=== PATIENT | female | born 1980 | race American Indian/Alaskan Native ===

== ENCOUNTER 2017-09-05 13:30 | Emergency (ER) | payer MEDICAID ==
[2017-09-05 14:27] LABS: Basophils % (Auto) 0.5 % (0.0-1.8); Eosinophils % (Auto) 3.2 % (0.0-4.3); Hematocrit 42.1 % (30.3-42.9); Mean Corpuscular HGB Conc 33 % (30-34); Mean Corpuscular Hemoglobin 30 pg (28-32); Mean Corpuscular Volume 90 fl (79-97); Platelet Count 265 K/mm3 (140-440); Red Blood Count 4.67 M/mm3 (3.65-5.03); White Blood Count 5.7 K/mm3 (4.5-11.0)
[2017-09-05 15:01] LABS: Anion Gap 16 mmol/L; BUN/Creatinine Ratio 17; Blood Urea Nitrogen 12 mg/dL (7-17); Calcium 8.6 mg/dL (8.4-10.2); Carbon Dioxide 26 mmol/L (22-30); Chloride 100.5 mmol/L (98-107); Glucose 118 mg/dL (65-100); Potassium 3.7 mmol/L (3.6-5.0); Sodium 139 mmol/L (137-145)
[2017-09-05 15:25] LABS: Bacteria,Urine 1+ /HPF (Negative); Bilirubin,Urine NEG (Negative); Blood,Urine LG (Negative); Ketones,Urine NEG (Negative); Leukocyte Esterase,Urine NEG (Negative); Mucus,Urine FEW /HPF; Nitrite,Urine NEG (Negative)
[2017-09-05 15:29] LABS: RBC,Urine > 182.0 /HPF (0.0-6.0)
[2017-09-05] MEDS ORDERED: CATAPRES ONE (19:17)
[2017-09-05] MEDS ORDERED: CATAPRES PO ONE (19:23)
[2017-09-05 21:43] VITALS: BP 165/102
--- NOTE | 2017-09-06 00:15 | Emergency Department Report ---
HPI - General Chief Complaint: Nausea/Vomiting/Diarrhea Time Seen by Provider: 09/05/17 23:11 - HPI HPI: This is a 37-year-old -[place] female presents to the emergency department with a complaint of uncontrolled and elevated blood pressure as well as some nonspecific dizziness. She denies any headache, vision change, slurred speech, chest pain, shortness of breath. The patient admits to history of hypertension but says that she has not been on any blood pressure medication for a while now. She was having some insurance issues and therefore has been unable to see a primary care physician. However recently she was able to get insurance and says that she follows up with Dr. Hayley Olivares. She denies any tobacco or illicit drug use or abuse. She did not take anything for her symptoms prior to presentation. No recent travel or sick contacts at home. ED Past Medical Hx - Past Medical History Previous Medical History?: Yes Hx Hypertension: Yes - Surgical History Past Surgical History?: Yes Additional Surgical History: breast reduction. gallstone removal. foot surgery - Social History Smoking Status: Never Smoker Substance Use Type: None - Medications Home Medications: Home Medications Medication Instructions Recorded Confirmed Last Taken Type Amlodipine Besylate [Norvasc] 5 mg PO QDAY #30 tablet 09/06/17 Unknown Rx ED Review of Systems ROS: Stated complaint: DIZZY Other details as noted in HPI Comment: All other systems reviewed and negative Constitutional: denies: chills, fever Eyes: denies: eye pain, eye discharge, vision change ENT: denies: ear pain, throat pain Respiratory: denies: cough, shortness of breath, wheezing Cardiovascular: denies: chest pain, palpitations Gastrointestinal: denies: abdominal pain, nausea, diarrhea Genitourinary: denies: urgency, dysuria, discharge Musculoskeletal: denies: back pain, joint swelling, arthralgia Skin: denies: rash, lesions Neurological: other (dizzy). denies: headache, weakness, paresthesias Physical Exam - Physical Exam Vital Signs: Vital Signs 09/05/17 09/05/17 09/05/17 13:57 19:12 19:24 Temperature 98.3 F Pulse Rate 79 82 82 Respiratory 18 16 Rate Blood Pressure 189/113 188/110 Blood Pressure 188/110 [Right] O2 Sat by Pulse 98 99 Oximetry 09/05/17 21:41 Temperature Pulse Rate 80 Respiratory Rate Blood Pressure Blood Pressure 165/102 [Right] O2 Sat by Pulse Oximetry Physical Exam: GENERAL: The patient is well-developed well-nourished. HENT: Normocephalic. Atraumatic. Patient has moist mucous membranes. EYES: Extraocular motions are intact. Pupils equal reactive to light bilaterally. No nystagmus. NECK: Supple. Trachea is midline. CHEST/LUNGS: Clear to auscultation. There is no respiratory distress noted. HEART/CARDIOVASCULAR: Regular. There is no tachycardia. There is no gallop rub or murmur. ABDOMEN: Abdomen is soft, nontender. Patient has normal bowel sounds. There is no abdominal distention. Obese habitus. SKIN: Skin is warm and dry. NEURO: The patient is awake, alert, and oriented. The patient is cooperative. The patient has no focal neurologic deficits. The patient has normal speech. MUSCULOSKELETAL: There is no tenderness or deformity. There is no limitation range of motion. There is no evidence of acute injury. ED Course Vital Signs 09/05/17 09/05/17 09/05/17 13:57 19:12 19:24 Temperature 98.3 F Pulse Rate 79 82 82 Respiratory 18 16 Rate Blood Pressure 189/113 188/110 Blood Pressure 188/110 [Right] O2 Sat by Pulse 98 99 Oximetry 09/05/17 21:41 Temperature Pulse Rate 80 Respiratory Rate Blood Pressure Blood Pressure 165/102 [Right] O2 Sat by Pulse Oximetry ED Medical Decision Making - Lab Data Result diagrams: 09/05/17 14:12 09/05/17 14:12 - EKG Data -: EKG Interpreted by Ak EKG shows normal: sinus rhythm, axis (LAD), intervals, QRS complexes, ST-T waves (Flat t waves) Rate: normal - EKG Data When compared to previous EKG there are: previous EKG unavailable Interpretation: other (left axis deviation, flat t waves) - Medical Decision Making 37-year-old female presents to the emergency department with complaint of some nonspecific dizziness or lightheadedness as well as some uncontrolled blood pressure. She did have quite elevated blood pressure when she came to triage and was given a dose of 0.2 mg Catapres. By the time she got back to the main emergency department, the blood pressure was at a much more reasonable level. She does not have any focal, motor or sensory deficits in her cranial nerves are intact. She says that the dizziness and/or lightheadedness has already improved. Labs are mostly unremarkable including no signs of infection, electrolyte abnormalities, renal insufficiency. EKG does not show any signs of ST elevation LA or dysrhythmia. The blood pressure has improved and the patient 's symptoms have also improved if not resolved, the patient appears safe for discharge home at this time. Since there are no focal, motor or sensory deficits in her cranial nerves are intact, did not feel that CT imaging of the head was necessary at this time. She will follow-up with Dr. Olivares and will return to the ER with any worsening of her symptoms or any acute distress. The patient's blood pressure prior to discharge was 118/78. - Differential Diagnosis dysrhythmia, hypothyroidism, hypertensive urgency Critical Care Time: No Critical care attestation.: If time is entered above; I have spent that time in minutes in the direct care of this critically ill patient, excluding procedure time. ED Disposition Clinical Impression: Dizziness Hypertension Qualifiers: Hypertension type: essential hypertension Qualified Code(s): I10 - Essential ( primary) hypertension Disposition: DC-01 TO HOME OR SELFCARE Is pt being admited?: No Condition: Stable Instructions: Hypertension (ED), Lightheadedness (ED), Dizziness (ED) Additional Instructions: His follow-up with your primary care doctor in the next few days. Try and stay with foods are high in salt and caffeinated products to help with your blood pressure. Keep a blood pressure log. Return to the emergency Department with any worsening of her symptoms or any acute distress. Prescriptions: Amlodipine Besylate [Norvasc] 5 mg PO QDAY #30 tablet Referrals: HAYLEY OLIVARES MD [Primary Care Provider] - 3-5 Days Forms: Work/School Release Form(ED) Time of Disposition: 00:38
== END 2017-09-06 00:45 | disposition home or self-care (01) ==
LOC: ED 13:30
DX: I10 Essential (primary) hypertension (principal); R42 Dizziness and giddiness
CPT/HCPCS: 36415; 80048; 81001; 81025; 84443; 85025; 93005; 93010

== ENCOUNTER 2017-12-05 12:12 | Emergency (ER) | payer MEDICAID ==
[2017-12-05 13:29] LABS: Basophils # (Auto) 0.1 K/mm3 (0.0-0.1); Eosinophils # (Auto) 0.3 K/mm3 (0.0-0.4); Eosinophils % (Auto) 4.4 % (0.0-4.3); Hematocrit 39.3 % (30.3-42.9); Hemoglobin 13.5 gm/dl (10.1-14.3); Lymphocytes # (Auto) 3.1 K/mm3 (1.2-5.4); Lymphocytes % (Auto) 42.8 % (13.4-35.0); Mean Corpuscular HGB Conc 34 % (30-34); Mean Corpuscular Hemoglobin 31 pg (28-32); Mean Corpuscular Volume 91 fl (79-97); Monocytes # (Auto) 0.4 K/mm3 (0.0-0.8); Monocytes % (Auto) 5.8 % (0.0-7.3); Platelet Count 251 K/mm3 (140-440); Red Cell Distribution Width 12.6 % (13.2-15.2)
[2017-12-05 13:31] LABS: Bacteria,Urine 1+ /HPF (Negative); Bilirubin,Urine NEG (Negative); Blood,Urine NEG (Negative); Color,Urine Yellow (Yellow); Mucus,Urine FEW /HPF; Nitrite,Urine NEG (Negative); Protein,Urine <15 mg/dL mg/dL (Negative); Urobilinogen,Urine < 2.0 mg/dL (<2.0)
[2017-12-05 13:37] LABS: BUN/Creatinine Ratio 16; Blood Urea Nitrogen 11 mg/dL (7-17); Calcium 9.1 mg/dL (8.4-10.2); Hemolysis Index 6
[2017-12-05 17:41] VITALS: BP 173/108
[2017-12-05] MEDS ORDERED: NORCO 5/325 PO ONE (18:50)
[2017-12-05] MEDS ORDERED: ZOFRAN ODT PO ONE (18:50)
[2017-12-05] MEDS ORDERED: CATAPRES PO ONE (18:50)
[2017-12-05] MEDS ORDERED: MACROBID PO ONE (18:50)
[2017-12-05] MEDS ORDERED: DUONEB *Not for PRN Use IH ONE (18:50)
--- NOTE | 2017-12-05 18:56 | Emergency Department Report ---
ED General Adult HPI - General Chief complaint: Dizziness Stated complaint: DIZZY/ HIGH BP Time Seen by Provider: 12/05/17 18:47 Source: patient, EMS Mode of arrival: Ambulatory Limitations: No Limitations - History of Present Illness Initial comments: Patient is a 56-vsag-ygm-[place] female with a past medical history of asthma who is presenting with cough cold congestion for 3 weeks. Patient states that she is had a productive cough clear sputum as well as wheezing for the past 3 weeks. Patient denies any fever vomiting at this time. Patient states that she also has a mild headache is generalized and is a 6 out of 10 in severity. Patient states that she's ran out of her nebulizer medications several days ago. Patient also complaining of mild dizziness and shaking this morning. Patient states she woke up in a cold sweat and was shaking uncontrollably. Patient's also noted that her blood pressure is elevated as well. Patient also states that she has some mild suprapubic pain with radiation to the back. Patient denies dysuria but does have urinary frequency Severity scale (0 -10): 0 Associated Symptoms: cough, diaphoresis, fever/chills, headaches. denies: confusion, chest pain, loss of appetite, malaise, nausea/vomiting, rash, seizure , shortness of breath, syncope - Related Data Home Medications Medication Instructions Recorded Confirmed Last Taken ALBUTEROL Inhaler [Proair] 2 puff IH QID PRN 01/03/17 01/03/17 Unknown Previous Rx's Medication Instructions Recorded Last Taken Type Hydrochlorothiazide [HCTZ] 25 mg PO ONCE #30 tablet 10/22/16 Unknown Rx ALBUTEROL Inhaler [ProAir HFA 2 puff IH QID PRN #1 inhalation 01/03/17 Unknown Rx Inhaler] Azithromycin [Zithromax Z-NALDO] 250 mg PO QDAY #6 tablet 01/03/17 Unknown Rx Benzonatate [Tessalon Perles] 100 mg PO Q8HR #14 capsule 01/03/17 Unknown Rx Phenylephrine/Dm/Acetaminop/GG 20 ml PO Q4HR PRN #180 liquid 01/03/17 Unknown Rx [Mucinex Byds-Kdp-Bgxieivvmd Lq] HYDROcodone/APAP 5-325 [[place] 1 each PO Q6HR PRN #15 tablet 04/21/17 Unknown Rx 5/325] Amlodipine Besylate [Norvasc] 5 mg PO QDAY #30 tablet 09/06/17 Unknown Rx Albuterol Sulfate [Albuterol 0.63% 0.63 mg IH TID PRN 7 Days ml 12/05/17 Unknown Rx NEBS] Benzonatate [Tessalon Perles] 100 mg PO Q8HR #12 capsule 12/05/17 Unknown Rx HYDROcodone/APAP 5-325 [[place] 1 each PO Q6HR PRN #12 tablet 12/05/17 Unknown Rx 5/325] Nitrofurantoin Monohyd/M-Cryst 100 mg PO BID #12 capsule 12/05/17 Unknown Rx [Macrobid 100 mg Capsule] Allergies Allergy/AdvReac Type Severity Reaction Status Date / Time No Known Allergies Allergy Verified 09/05/17 13:57 ED Review of Systems ROS: Stated complaint: DIZZY/ HIGH BP Other details as noted in HPI Comment: All other systems reviewed and negative ED Past Medical Hx - Past Medical History Previous Medical History?: Yes Hx Hypertension: Yes Hx Asthma: Yes Additional medical history: Morbid obesity - Surgical History Past Surgical History?: Yes Hx Cholecystectomy: Yes Additional Surgical History: breast reduction. gallstone removal. foot surgery - Social History Smoking Status: Never Smoker Substance Use Type: Prescribed - Medications Home Medications: Home Medications Medication Instructions Recorded Confirmed Last Taken Type Hydrochlorothiazide [HCTZ] 25 mg PO ONCE #30 tablet 10/22/16 01/03/17 Unknown Rx ALBUTEROL Inhaler [ProAir HFA 2 puff IH QID PRN #1 inhalation 01/03/17 Unknown Rx Inhaler] ALBUTEROL Inhaler [Proair] 2 puff IH QID PRN 01/03/17 01/03/17 Unknown History Azithromycin [Zithromax Z-NALDO] 250 mg PO QDAY #6 tablet 01/03/17 Unknown Rx Benzonatate [Tessalon Perles] 100 mg PO Q8HR #14 capsule 01/03/17 Unknown Rx Phenylephrine/Dm/Acetaminop/GG 20 ml PO Q4HR PRN #180 liquid 01/03/17 Unknown Rx [Mucinex Pxpy-Cxd-Rgborukuml Lq] HYDROcodone/APAP 5-325 [[place] 1 each PO Q6HR PRN #15 tablet 04/21/17 Unknown Rx 5/325] Amlodipine Besylate [Norvasc] 5 mg PO QDAY #30 tablet 09/06/17 Unknown Rx Albuterol Sulfate [Albuterol 0.63% 0.63 mg IH TID PRN 7 Days ml 12/05/17 Unknown Rx NEBS] Benzonatate [Tessalon Perles] 100 mg PO Q8HR #12 capsule 12/05/17 Unknown Rx HYDROcodone/APAP 5-325 [[place] 1 each PO Q6HR PRN #12 tablet 12/05/17 Unknown Rx 5/325] Nitrofurantoin Monohyd/M-Cryst 100 mg PO BID #12 capsule 12/05/17 Unknown Rx [Macrobid 100 mg Capsule] ED Physical Exam - General Limitations: No Limitations General appearance: alert, in no apparent distress - Head Head exam: Present: atraumatic, normocephalic - Eye Eye exam: Present: normal appearance - ENT ENT exam: Present: mucous membranes moist - Neck Neck exam: Present: normal inspection - Respiratory Respiratory exam: Present: normal lung sounds bilaterally, wheezes. Absent: respiratory distress, rales, rhonchi, stridor - Cardiovascular Cardiovascular Exam: Present: regular rate, normal rhythm. Absent: systolic murmur, diastolic murmur, rubs, gallop - GI/Abdominal GI/Abdominal exam: Present: soft, normal bowel sounds. Absent: distended, tenderness, guarding - Extremities Exam Extremities exam: Present: normal inspection - Back Exam Back exam: Present: normal inspection - Neurological Exam Neurological exam: Present: alert, oriented X3 - Psychiatric Psychiatric exam: Present: normal affect, normal mood - Skin Skin exam: Present: warm, dry, intact, normal color. Absent: rash ED Course Vital Signs 12/05/17 12/05/17 12/05/17 12:26 17:40 17:44 Temperature 98.2 F 98.2 F Pulse Rate 64 69 69 Pulse Rate [ Posterior Bilateral Throughout] Respiratory 18 16 16 Rate Respiratory Rate [Posterior Bilateral Throughout] Blood Pressure 169/117 Blood Pressure 173/108 173/108 [Left] O2 Sat by Pulse 98 100 100 Oximetry 12/05/17 19:24 Temperature Pulse Rate Pulse Rate [ 67 Posterior Bilateral Throughout] Respiratory Rate Respiratory 18 Rate [Posterior Bilateral Throughout] Blood Pressure Blood Pressure [Left] O2 Sat by Pulse Oximetry ED Medical Decision Making - Lab Data Result diagrams: 12/05/17 12:29 12/05/17 12:29 Lab Results 12/05/17 12/05/17 12/05/17 Range/Units 12:29 12:29 13:11 WBC 7.2 (4.5-11.0) K/mm3 RBC 4.30 (3.65-5.03) M/mm3 Hgb 13.5 (10.1-14.3) gm/dl Hct 39.3 (30.3-42.9) % MCV 91 (79-97) fl MCH 31 (28-32) pg MCHC 34 (30-34) % RDW 12.6 L (13.2-15.2) % Plt Count 251 (140-440) K/mm3 Lymph % (Auto) 42.8 H (13.4-35.0) % [place] % (Auto) 5.8 (0.0-7.3) % Eos % (Auto) 4.4 H (0.0-4.3) % Baso % (Auto) 1.0 (0.0-1.8) % Lymph # 3.1 (1.2-5.4) K/mm3 [place] # 0.4 (0.0-0.8) K/mm3 Eos # 0.3 (0.0-0.4) K/mm3 Baso # 0.1 (0.0-0.1) K/mm3 Seg Neutrophils % 46.0 (40.0-70.0) % Seg Neutrophils # 3.3 (1.8-7.7) K/mm3 Sodium 137 (137-145) mmol/L Potassium 3.9 (3.6-5.0) mmol/L Chloride 99.3 (98-107) mmol/L Carbon Dioxide 24 (22-30) mmol/L Anion Gap 18 mmol/L BUN 11 (7-17) mg/dL Creatinine 0.7 (0.7-1.2) mg/dL Estimated GFR > 60 ml/min BUN/Creatinine Ratio 16 % Glucose 221 H (65-100) mg/dL Calcium 9.1 (8.4-10.2) mg/dL Urine Color Yellow (Yellow) Urine Turbidity Clear (Clear) Urine pH 5.0 (5.0-7.0) Ur Specific [place] 1.019 (1.003-1.030) Urine Protein <15 mg/dl (Negative) mg/dL Urine Glucose (UA) 150 (Negative) mg/dL Urine Ketones Neg (Negative) mg/dL Urine Blood Neg (Negative) Urine Nitrite Neg (Negative) Urine Bilirubin Neg (Negative) Urine Urobilinogen < 2.0 (<2.0) mg/dL Ur Leukocyte Esterase Tr (Negative) Urine WBC (Auto) 1.0 (0.0-6.0) /HPF Urine RBC (Auto) 1.0 (0.0-6.0) /HPF U Epithel Cells (Auto) 6.0 (0-13.0) /HPF Urine Bacteria (Auto) 1+ (Negative) /HPF Urine Mucus Few /HPF - EKG Data -: EKG Interpreted by Me EKG shows normal: sinus rhythm, axis, intervals, QRS complexes, ST-T waves Rate: normal - EKG Data Interpretation: normal EKG Critical care attestation.: If time is entered above; I have spent that time in minutes in the direct care of this critically ill patient, excluding procedure time. ED Disposition Clinical Impression: Acute bronchitis Qualifiers: Bronchitis organism: unspecified organism Qualified Code(s): J20.9 - Acute bronchitis, unspecified Acute cystitis Qualifiers: Hematuria presence: without hematuria Qualified Code(s): N30.00 - Acute cystitis without hematuria Asthma exacerbation Qualifiers: Asthma severity: mild Asthma persistence: intermittent Qualified Code(s): J45.21 - Mild intermittent asthma with (acute) exacerbation Disposition: DC- TO HOME OR SELFCARE Is pt being admited?: No Does the pt Need Aspirin: No Condition: Fair Instructions: Acute Bronchitis (ED), Asthma (ED), Urinary Tract Infection in Women (ED) Prescriptions: Albuterol Sulfate [Albuterol 0.63% NEBS] 0.63 mg IH TID PRN 7 Days ml PRN Reason: Wheezing Benzonatate [Tessalon Perles] 100 mg PO Q8HR #12 capsule HYDROcodone/APAP 5-325 [[place] 5/325] 1 each PO Q6HR PRN #12 tablet PRN Reason: Pain Nitrofurantoin Monohyd/M-Cryst [Macrobid 100 mg Capsule] 100 mg PO BID #12 capsule Referrals: PRIMARY CARE, [Primary Care Provider] - 3-5 Days
== END 2017-12-05 19:50 | disposition home or self-care (01) ==
LOC: ED 12:12
DX: J20.9 Acute bronchitis, unspecified (principal); J45.21 Mild intermittent asthma with (acute) exacerbation; N30.00 Acute cystitis without hematuria; I10 Essential (primary) hypertension; J45.909 Unspecified asthma, uncomplicated; E66.01 Morbid (severe) obesity due to excess calories; Z90.49 Acquired absence of other specified parts of digestive tract; Z98.890 Other specified postprocedural states
CPT/HCPCS: 36415; 80048; 81001; 85025; 93005; 93010; 94640; Q0162

== ENCOUNTER 2018-05-25 11:18 | Emergency (ER) | payer MEDICAID ==
[2018-05-25 13:29] VITALS: BP 143/100
[2018-05-25] MEDS ORDERED: MOTRIN PO ONE (13:45)
[2018-05-25] MEDS ORDERED: TYLENOL PO ONE (13:45)
--- NOTE | 2018-05-25 14:01 | Emergency Department Report ---
ED General Adult HPI - General Chief complaint: Abdominal Pain Stated complaint: HEADACHE/NAUSEA/EYES BURNING Time Seen by Provider: 05/25/18 13:45 Source: patient Mode of arrival: Ambulatory Limitations: No Limitations - History of Present Illness Initial comments: 38-year-old female presents to the ER with 1 day of right eye irritation and U discharge. Her son has been sick at home with similar symptoms. Denies trauma to her eye. Has light sensitivity, but no pain with blinking. Does not wear contact lenses or glasses. Never has had this problem before. She says that her vision is at baseline. Of note, patient also endorses one day of suprapubic abdominal tenderness with urinary frequency. Has associated nausea, which is a chronic issue for the patient. Afebrile. Also endorses a mild headache, which is chronic for the patient. She says that her family doctor changed around her blood pressure medicine (increased her amlodipine to 10 mg from 5 mg daily) A week or so ago and ever since she has been having intermittent headaches. I believe the patient likely to be having pinkeye, especially since her son is at home with similar symptoms and his symptoms began before hers. Bedside ocular exam significant for mild conjunctival injection. Lower abdominal pain likely consistent with a UTI. No evidence of pyelonephritis. Denies vaginal complaints. Last menstrual period was a week ago. I will order a urinalysis to further evaluate. Severity scale (0 -10): 5 - Related Data Home Medications Medication Instructions Recorded Confirmed Last Taken ALBUTEROL Inhaler [Proair] 2 puff IH QID PRN 01/03/17 01/03/17 Unknown Previous Rx's Medication Instructions Recorded Last Taken Type Hydrochlorothiazide [HCTZ] 25 mg PO ONCE #30 tablet 10/22/16 Unknown Rx ALBUTEROL Inhaler [ProAir HFA 2 puff IH QID PRN #1 inhalation 01/03/17 Unknown Rx Inhaler] Azithromycin [Zithromax Z-NALDO] 250 mg PO QDAY #6 tablet 01/03/17 Unknown Rx Benzonatate [Tessalon Perles] 100 mg PO Q8HR #14 capsule 01/03/17 Unknown Rx Phenylephrine/Dm/Acetaminop/GG 20 ml PO Q4HR PRN #180 liquid 01/03/17 Unknown Rx [Mucinex Zdvu-Dnw-Uwwsbrkpuf Lq] HYDROcodone/APAP 5-325 [[place] 1 each PO Q6HR PRN #15 tablet 04/21/17 Unknown Rx 5/325] Amlodipine Besylate [Norvasc] 5 mg PO QDAY #30 tablet 09/06/17 Unknown Rx Albuterol Sulfate [Albuterol 0.63% 0.63 mg IH TID PRN 7 Days ml 12/05/17 Unknown Rx NEBS] Benzonatate [Tessalon Perles] 100 mg PO Q8HR #12 capsule 12/05/17 Unknown Rx HYDROcodone/APAP 5-325 [[place] 1 each PO Q6HR PRN #12 tablet 12/05/17 Unknown Rx 5/325] Nitrofurantoin Monohyd/M-Cryst 100 mg PO BID #12 capsule 12/05/17 Unknown Rx [Macrobid 100 mg Capsule] Erythromycin [Erythromycin Ophth 10 applic OP QID #1 tube 05/25/18 Unknown Rx Oint] Erythromycin [Erythromycin Ophth 10 applic OP QID #1 tube 05/25/18 Unknown Rx Oint] Allergies Allergy/AdvReac Type Severity Reaction Status Date / Time No Known Allergies Allergy Verified 09/05/17 13:57 ED Review of Systems ROS: Stated complaint: HEADACHE/NAUSEA/EYES BURNING Other details as noted in HPI Comment: All other systems reviewed and negative Eyes: eye pain Gastrointestinal: abdominal pain, nausea Neurological: headache ED Past Medical Hx - Past Medical History Hx Hypertension: Yes Hx Asthma: Yes Additional medical history: Morbid obesity - Surgical History Hx Cholecystectomy: Yes Additional Surgical History: breast reduction. gallstone removal. foot surgery - Social History Smoking Status: Never Smoker - Medications Home Medications: Home Medications Medication Instructions Recorded Confirmed Last Taken Type Hydrochlorothiazide [HCTZ] 25 mg PO ONCE #30 tablet 10/22/16 01/03/17 Unknown Rx ALBUTEROL Inhaler [ProAir HFA 2 puff IH QID PRN #1 inhalation 01/03/17 Unknown Rx Inhaler] ALBUTEROL Inhaler [Proair] 2 puff IH QID PRN 01/03/17 01/03/17 Unknown History Azithromycin [Zithromax Z-NALDO] 250 mg PO QDAY #6 tablet 01/03/17 Unknown Rx Benzonatate [Tessalon Perles] 100 mg PO Q8HR #14 capsule 01/03/17 Unknown Rx Phenylephrine/Dm/Acetaminop/GG 20 ml PO Q4HR PRN #180 liquid 01/03/17 Unknown Rx [Mucinex Ictb-Zcv-Rklcpnbrga Lq] HYDROcodone/APAP 5-325 [[place] 1 each PO Q6HR PRN #15 tablet 04/21/17 Unknown Rx 5/325] Amlodipine Besylate [Norvasc] 5 mg PO QDAY #30 tablet 09/06/17 Unknown Rx Albuterol Sulfate [Albuterol 0.63% 0.63 mg IH TID PRN 7 Days ml 12/05/17 Unknown Rx NEBS] Benzonatate [Tessalon Perles] 100 mg PO Q8HR #12 capsule 12/05/17 Unknown Rx HYDROcodone/APAP 5-325 [[place] 1 each PO Q6HR PRN #12 tablet 12/05/17 Unknown Rx 5/325] Nitrofurantoin Monohyd/M-Cryst 100 mg PO BID #12 capsule 12/05/17 Unknown Rx [Macrobid 100 mg Capsule] Erythromycin [Erythromycin Ophth 10 applic OP QID #1 tube 05/25/18 Unknown Rx Oint] Erythromycin [Erythromycin Ophth 10 applic OP QID #1 tube 05/25/18 Unknown Rx Oint] ED Physical Exam - General Limitations: No Limitations General appearance: alert, in no apparent distress - Head Head exam: Present: atraumatic, normocephalic - Eye Eye exam: Present: PERRL, EOMI, conjunctival injection (mild rt conjunctival injection) Pupils: Present: normal accommodation - ENT ENT exam: Present: mucous membranes moist - Neck Neck exam: Present: normal inspection - Respiratory Respiratory exam: Present: normal lung sounds bilaterally. Absent: respiratory distress - Cardiovascular Cardiovascular Exam: Present: regular rate, normal rhythm. Absent: systolic murmur, diastolic murmur, rubs, gallop - GI/Abdominal GI/Abdominal exam: Present: soft, tenderness (suprapubic), normal bowel sounds - Extremities Exam Extremities exam: Present: normal inspection - Back Exam Back exam: Present: normal inspection - Neurological Exam Neurological exam: Present: alert, oriented X3 - Psychiatric Psychiatric exam: Present: normal affect, normal mood - Skin Skin exam: Present: warm, dry, intact, normal color. Absent: rash ED Course Vital Signs 05/25/18 05/25/18 11:36 13:28 Temperature 98.1 F 98 F Pulse Rate 94 H 83 Respiratory 15 18 Rate Blood Pressure 138/100 Blood Pressure 143/100 [Left] O2 Sat by Pulse 96 100 Oximetry ED Medical Decision Making - Medical Decision Making 38-year-old female with no significant past medical history that presents to the ER with right eye pain and abdominal cramping for the past 24 hours. Patient likely has pinkeye as concerns for UTI. Rt eye IOP 14. Patient has a small area of forcing uptake on the right eye. Negative Teresa sign. Likely patient accidentally scratched her eye.. Will give erythromycin ointment for her eye. She will be told to follow up with ophtho if her eye pain fails to improve. Urinalysis is unremarkable. I will send it for culture. Patient is well-appearing. I have told her to Take Tylenol and motrin as needed for pain relief. She'll follow-up with her family doctor for reevaluation if her abdominal pain felt improved. Low suspicion for emergent abdominal pathology. - Differential Diagnosis acute angle closure glaucoma, corneal abrasion, orbital cellulitis, pink ey Critical care attestation.: If time is entered above; I have spent that time in minutes in the direct care of this critically ill patient, excluding procedure time. ED Disposition Clinical Impression: Viral conjunctivitis of right eye, Corneal abrasion, right, Abdominal pain Disposition: DC-01 TO HOME OR SELFCARE Is pt being admited?: No Condition: Stable Instructions: Conjunctivitis (ED), Corneal Abrasion (ED), Abdominal Pain (ED) Additional Instructions: Follow up with the eye doctor if your symptoms don't improve in 3 days. Prescriptions: Erythromycin [Erythromycin Ophth Oint] 10 applic OP QID #1 tube Erythromycin [Erythromycin Ophth Oint] 10 applic OP QID #1 tube Referrals: PRIMARY CARE, [Primary Care Provider] - 3-5 Days ALEXANDRA BARBER MD [Staff Physician] - 3-5 Days
[2018-05-25] MEDS ORDERED: TETRACAINE 0.5% OU ONE (14:04)
[2018-05-25] MEDS ORDERED: FUL-GLO OP ONE (14:04)
[2018-05-25 14:11] LABS: Bilirubin,Urine NEG (Negative); Blood,Urine NEG (Negative); Color,Urine Yellow (Yellow); Mucus,Urine 2+ /HPF; Protein,Urine <15 mg/dL mg/dL (Negative)
[2018-05-25 14:12] LABS: HCG Qualitative,Urine Negative (Negative)
== END 2018-05-25 14:54 | disposition home or self-care (01) ==
LOC: ED 11:18
DX: S05.01XA Injury of conjunctiva and corneal abrasion without foreign body, right eye, initial encounter (principal); H10.89 Other conjunctivitis; R10.30 Lower abdominal pain, unspecified; I10 Essential (primary) hypertension; J45.909 Unspecified asthma, uncomplicated; E66.01 Morbid (severe) obesity due to excess calories; Z68.38 Body mass index [BMI] 38.0-38.9, adult; Z79.899 Other long term (current) drug therapy; Z90.49 Acquired absence of other specified parts of digestive tract; X58.XXXA Exposure to other specified factors, initial encounter; Y93.89 Activity, other specified; Y92.89 Other specified places as the place of occurrence of the external cause; Y99.8 Other external cause status
CPT/HCPCS: 81001; 81025; 99283

== ENCOUNTER 2018-09-12 11:48 | Emergency (ER) | payer MEDICAID ==
[2018-09-12 12:52] VITALS: BP 161/100
--- NOTE | 2018-09-12 14:09 | Emergency Department Report ---
Eye Injury/Foreign Body - HPI Duration: 3 Days Eye Location: Left Severity: None Tetanus Status: Up to Date Eye Symptoms: Eye Pain: Yes, Blurred Vision: No, Eye Redness: Yes, Grinding/ Hammering Metal: No, Used Eye Protection: No, Contact Lens Use: No, Recalls Injury: No, Photophobia: Yes Other History: 38-year-old [place] female to emergency Department complaining of left pain for the last couple of days associated with therapy, mucous buildup in the morning and redness. She notices a lot of irritation to the course of the day, followed by a sharp pain in the right lights. There is been no loss of vision, scotomas, blurred vision, double vision. Reports no headaches, no fevers, chills, sweats, chest pain, palpitations, nausea, vomiting ED Review of Systems ROS: Stated complaint: EYE/FOOT PAIN Other details as noted in HPI Constitutional: denies: chills, fever Eyes: eye pain. denies: eye discharge, vision change ENT: denies: ear pain, throat pain Respiratory: denies: cough, shortness of breath, wheezing Cardiovascular: denies: chest pain, palpitations Endocrine: no symptoms reported Gastrointestinal: denies: abdominal pain, nausea, diarrhea Genitourinary: denies: urgency, dysuria, discharge Musculoskeletal: denies: back pain, joint swelling, arthralgia Skin: denies: rash, lesions Neurological: denies: headache, weakness, paresthesias Psychiatric: denies: anxiety, depression Hematological/Lymphatic: denies: easy bleeding, easy bruising ED Past Medical Hx - Past Medical History Hx Hypertension: Yes Hx Asthma: Yes Additional medical history: Morbid obesity - Surgical History Hx Cholecystectomy: Yes Additional Surgical History: breast reduction. gallstone removal. foot surgery - Social History Smoking Status: Never Smoker Substance Use Type: Alcohol - Medications Home Medications: Home Medications Medication Instructions Recorded Confirmed Last Taken Type hydroCHLOROthiazide [HCTZ] 25 mg PO ONCE #30 tablet 10/22/16 01/03/17 Unknown Rx ALBUTEROL Inhaler (OR & NICU) 2 puff IH QID PRN #1 inhalation 01/03/17 Unknown Rx [ProAir HFA Inhaler] ALBUTEROL Inhaler (OR & NICU) 2 puff IH QID PRN 01/03/17 01/03/17 Unknown History [Proair] Azithromycin [Zithromax Z-NALDO] 250 mg PO QDAY #6 tablet 01/03/17 Unknown Rx Benzonatate [Tessalon Perles] 100 mg PO Q8HR #14 capsule 01/03/17 Unknown Rx Phenylephrine/Dm/Acetaminop/GG 20 ml PO Q4HR PRN #180 liquid 01/03/17 Unknown Rx [Mucinex Obbp-Stu-Acsdpywsjb Lq] HYDROcodone/APAP 5-325 [[place] 1 each PO Q6HR PRN #15 tablet 04/21/17 Unknown Rx 5/325] Amlodipine Besylate [Norvasc] 5 mg PO QDAY #30 tablet 09/06/17 Unknown Rx Albuterol Sulfate [Albuterol 0.63% 0.63 mg IH TID PRN 7 Days ml 12/05/17 Unknown Rx NEBS] Benzonatate [Tessalon Perles] 100 mg PO Q8HR #12 capsule 12/05/17 Unknown Rx HYDROcodone/APAP 5-325 [[place] 1 each PO Q6HR PRN #12 tablet 12/05/17 Unknown Rx 5/325] Nitrofurantoin Monohyd/M-Cryst 100 mg PO BID #12 capsule 12/05/17 Unknown Rx [Macrobid 100 mg Capsule] Erythromycin [Erythromycin Ophth 10 applic OP QID #1 tube 05/25/18 Unknown Rx Oint] Erythromycin [Erythromycin Ophth 10 applic OP QID #1 tube 05/25/18 Unknown Rx Oint] Ketorolac Tromethamine [Acular] 1 - 2 drops OS Q6H PRN #1 bottle 09/12/18 Unknown Rx Tobramycin [Tobrex] 1 drop OP Q4H #1 bottle 09/12/18 Unknown Rx Eye Injury Exam - Exam General: Vital signs noted. No distress. Alert and acting appropriately. ED Course Vital Signs 09/12/18 12:48 Temperature 98.5 F Pulse Rate 65 Respiratory 16 Rate Blood Pressure 161/100 O2 Sat by Pulse 99 Oximetry Critical care attestation.: If time is entered above; I have spent that time in minutes in the direct care of this critically ill patient, excluding procedure time. ED Disposition Clinical Impression: Pain, eye, left Disposition: DC-01 TO HOME OR SELFCARE Is pt being admited?: No Does the pt Need Aspirin: No Condition: Stable Prescriptions: Ketorolac Tromethamine [Acular] 1 - 2 drops OS Q6H PRN #1 bottle PRN Reason: eye pain Tobramycin [Tobrex] 1 drop OP Q4H #1 bottle Referrals: PRIMARY CARE, [Primary Care Provider] - 3-5 Days MENDOZA LAUGHLIN MD [Staff Physician] - 3-5 Days BORA WRIGHT MD [Staff Physician] - 3-5 Days JUDE BENÍTEZ MD [Staff Physician] - 3-5 Days ED ENT EXAM - General Limitations: No Limitations - Head Head exam: Positive: atraumatic - Eye Eye exam: conjunctival injection (no periorbital swelling or tenderness. No scleral icterus or nystagmus) Pupils: Positive: normal accommodation - ENT Ear exam: Positive: normal external inspection Mouth exam: Positive: normal external inspection Teeth exam: Positive: normal inspection Throat exam: Positive: normal inspection. Negative: tonsillar erythema, tonsillar exudate, R peritonsillar mass, L peritonsillar mass - Neck Neck exam: Positive: normal inspection, full ROM. Negative: lymphadenopathy, thyromegaly - Respiratory Respiratory exam: Positive: normal lung sounds bilaterally - Cardiovascular Cardiovascular Exam: Positive: regular rate, normal rhythm - Back Back exam: full ROM - Neurological Neurological exam: Positive: alert, oriented X3, CN II-XII intact - Psychiatric Psychiatric exam: Positive: normal affect, normal mood - Skin Skin exam: Positive: warm, dry, intact, normal color
== END 2018-09-12 14:15 | disposition home or self-care (01) ==
LOC: ED 11:48
DX: H57.12 Ocular pain, left eye (principal); I10 Essential (primary) hypertension; J45.909 Unspecified asthma, uncomplicated; E66.01 Morbid (severe) obesity due to excess calories; Z90.49 Acquired absence of other specified parts of digestive tract
CPT/HCPCS: 99282

== ENCOUNTER 2019-05-26 15:12 | Emergency (ER) | payer MEDICAID ==
--- NOTE | 2019-05-26 16:32 | Emergency Department Report ---
Blank Doc - Documentation Documentation: This is a 39-year-old female that presents with abdominal pain with nausea. D enies any vomiting. Also has some dizziness. This initial assessment/diagnostic orders/clinical plan/treatment(s) is/are subject to change based on patient's health status, clinical progression and re- assessment by fellow clinical providers in the ED. Further treatment and workup at subsequent clinical providers discretion. Patient/guardians urged not to elope from the ED as their condition may be serious if not clinically assessed and managed. Initial orders include: 1- Patient sent to [facility] for further evaluation and treatment 2- labs 3- UA
[2019-05-26 16:56] LABS: Basophils # (Auto) 0.1 K/mm3 (0.0-0.1); Basophils % (Auto) 0.9 % (0.0-1.8); Eosinophils # (Auto) 0.2 K/mm3 (0.0-0.4); Eosinophils % (Auto) 2.5 % (0.0-4.3); Hematocrit 37.3 % (30.3-42.9); Hemoglobin 13.2 gm/dl (10.1-14.3); Lymphocytes # (Auto) 3.2 K/mm3 (1.2-5.4); Lymphocytes % (Auto) 38.1 % (13.4-35.0); Mean Corpuscular HGB Conc 35 % (30-34); Mean Corpuscular Volume 90 fl (79-97); Monocytes # (Auto) 0.5 K/mm3 (0.0-0.8); Monocytes % (Auto) 6.1 % (0.0-7.3); Platelet Count 275 K/mm3 (140-440); Red Blood Count 4.15 M/mm3 (3.65-5.03); Red Cell Distribution Width 13.1 % (13.2-15.2)
[2019-05-26 17:14] LABS: Bacteria,Urine 1+ /HPF (Negative); Bilirubin,Urine NEG (Negative); Blood,Urine MOD (Negative); Color,Urine Yellow (Yellow); Mucus,Urine 1+ /HPF; Protein,Urine <15 mg/dL mg/dL (Negative)
[2019-05-26 17:24] LABS: Alanine Aminotransferase 18 units/L (7-56); Albumin 4.1 g/dL (3.9-5); BUN/Creatinine Ratio 11; Blood Urea Nitrogen 9 mg/dL (7-17); Calcium 9.2 mg/dL (8.4-10.2); Hemolysis Index 8
--- NOTE | 2019-05-26 19:31 | Emergency Department Report ---
ED Abdominal Pain HPI - General Chief Complaint: Abdominal Pain Stated Complaint: ABD PAIN/NAUSEA/DIZZY Time Seen by Provider: 05/26/19 16:31 Source: patient Mode of arrival: Ambulatory Limitations: No Limitations - History of Present Illness Initial Comments: This is a 39-year-old female that presents with abdominal pain with nausea. Denies any vomiting. there is associated urinary frequency and urgency no hematuria no flow problem no fever or chills , pt is tolerating po intake , pt is advises that she is not taking bp medication because she doesn't need it, pt denies cp no sob no dizziness no back pain no diaphoresis. Onset/Timin -: days(s) Location: suprapubic Radiation: suprapubic Migration to: suprapubic Severity: mild Severity scale (0 -10): 3 Quality: cramping Consistency: intermittent Improves With: nothing Worsens With: other (voiding ) Associated Symptoms: nausea, dysuria. denies: vomiting, diarrhea, fever, chills, constipation, hematemesis, hematochezia, melena, hematuria, anorexia, syncope - Related Data LMP Date: 05/12/19 Home Medications Medication Instructions Recorded Confirmed Last Taken ALBUTEROL Inhaler (OR & NICU) 2 puff IH QID PRN 01/03/17 01/03/17 Unknown [Proair] Previous Rx's Medication Instructions Recorded Last Taken Type hydroCHLOROthiazide [HCTZ] 25 mg PO ONCE #30 tablet 10/22/16 Unknown Rx ALBUTEROL Inhaler (OR & NICU) 2 puff IH QID PRN #1 inhalation 01/03/17 Unknown Rx [ProAir HFA Inhaler] Azithromycin [Zithromax Z-NALDO] 250 mg PO QDAY #6 tablet 01/03/17 Unknown Rx Benzonatate [Tessalon Perles] 100 mg PO Q8HR #14 capsule 01/03/17 Unknown Rx Phenylephrine/Dm/Acetaminop/GG 20 ml PO Q4HR PRN #180 liquid 01/03/17 Unknown Rx [Mucinex Ulxl-Ooa-Uuxtviffuu Lq] HYDROcodone/APAP 5-325 [[place] 1 each PO Q6HR PRN #15 tablet 04/21/17 Unknown Rx 5/325] Amlodipine Besylate [Norvasc] 5 mg PO QDAY #30 tablet 09/06/17 Unknown Rx Albuterol Sulfate [Albuterol 0.63% 0.63 mg IH TID PRN 7 Days ml 12/05/17 Unknown Rx NEBS] Benzonatate [Tessalon Perles] 100 mg PO Q8HR #12 capsule 12/05/17 Unknown Rx HYDROcodone/APAP 5-325 [[place] 1 each PO Q6HR PRN #12 tablet 12/05/17 Unknown Rx 5/325] Nitrofurantoin Monohyd/M-Cryst 100 mg PO BID #12 capsule 12/05/17 Unknown Rx [Macrobid 100 mg Capsule] Erythromycin [Erythromycin Ophth 10 applic OP QID #1 tube 05/25/18 Unknown Rx Oint] Erythromycin [Erythromycin Ophth 10 applic OP QID #1 tube 05/25/18 Unknown Rx Oint] Ketorolac Tromethamine [Acular] 1 - 2 drops OS Q6H PRN #1 bottle 09/12/18 Unknown Rx Tobramycin [Tobrex] 1 drop OP Q4H #1 bottle 09/12/18 Unknown Rx Famotidine [Pepcid] 20 mg PO BID #30 tablet 11/01/18 Unknown Rx Lisinopril [Zestril TAB] 10 mg PO QDAY #30 tablet 11/01/18 Unknown Rx Ondansetron [Zofran Odt] 4 mg PO Q8HR PRN #20 tab.rapdis 11/01/18 Unknown Rx traMADol [Ultram 50 MG tab] 50 mg PO Q6HR PRN #20 tablet 11/01/18 Unknown Rx Ibuprofen [Motrin 800 MG tab] 800 mg PO Q8HR PRN #30 tablet 05/26/19 Unknown Rx Nitrofurantoin [place]/M-Cryst 100 mg PO BID 7 Days #14 capsule 05/26/19 Unknown Rx [Macrobid CAP] Allergies Allergy/AdvReac Type Severity Reaction Status Date / Time No Known Allergies Allergy Verified 09/05/17 13:57 ED Review of Systems ROS: Stated complaint: ABD PAIN/NAUSEA/DIZZY Other details as noted in HPI Constitutional: denies: chills, fever Eyes: denies: eye pain, eye discharge, vision change ENT: denies: ear pain, throat pain Respiratory: denies: cough, shortness of breath, wheezing Cardiovascular: denies: chest pain, palpitations Endocrine: no symptoms reported Gastrointestinal: denies: abdominal pain, nausea, diarrhea Genitourinary: urgency, dysuria, frequency. denies: hematuria, discharge, dyspareunia Musculoskeletal: denies: back pain, joint swelling, arthralgia Skin: denies: rash, lesions Neurological: denies: headache, weakness, paresthesias Psychiatric: denies: anxiety, depression Hematological/Lymphatic: denies: easy bleeding, easy bruising ED Past Medical Hx - Past Medical History Previous Medical History?: Yes Hx Hypertension: Yes (Not taking medication x 30 days) Hx Asthma: Yes Additional medical history: Morbid obesity - Surgical History Hx Cholecystectomy: Yes Additional Surgical History: breast reduction. gallstone removal. foot surgery - Social History Smoking Status: Never Smoker - Medications Home Medications: Home Medications Medication Instructions Recorded Confirmed Last Taken Type hydroCHLOROthiazide [HCTZ] 25 mg PO ONCE #30 tablet 10/22/16 01/03/17 Unknown Rx ALBUTEROL Inhaler (OR & NICU) 2 puff IH QID PRN #1 inhalation 01/03/17 Unknown Rx [ProAir HFA Inhaler] ALBUTEROL Inhaler (OR & NICU) 2 puff IH QID PRN 01/03/17 01/03/17 Unknown History [Proair] Azithromycin [Zithromax Z-NALDO] 250 mg PO QDAY #6 tablet 01/03/17 Unknown Rx Benzonatate [Tessalon Perles] 100 mg PO Q8HR #14 capsule 01/03/17 Unknown Rx Phenylephrine/Dm/Acetaminop/GG 20 ml PO Q4HR PRN #180 liquid 01/03/17 Unknown Rx [Mucinex Ikex-Ily-Zjqisdcqng Lq] HYDROcodone/APAP 5-325 [[place] 1 each PO Q6HR PRN #15 tablet 04/21/17 Unknown Rx 5/325] Amlodipine Besylate [Norvasc] 5 mg PO QDAY #30 tablet 09/06/17 Unknown Rx Albuterol Sulfate [Albuterol 0.63% 0.63 mg IH TID PRN 7 Days ml 12/05/17 Unknown Rx NEBS] Benzonatate [Tessalon Perles] 100 mg PO Q8HR #12 capsule 12/05/17 Unknown Rx HYDROcodone/APAP 5-325 [[place] 1 each PO Q6HR PRN #12 tablet 12/05/17 Unknown Rx 5/325] Nitrofurantoin Monohyd/M-Cryst 100 mg PO BID #12 capsule 12/05/17 Unknown Rx [Macrobid 100 mg Capsule] Erythromycin [Erythromycin Ophth 10 applic OP QID #1 tube 05/25/18 Unknown Rx Oint] Erythromycin [Erythromycin Ophth 10 applic OP QID #1 tube 05/25/18 Unknown Rx Oint] Ketorolac Tromethamine [Acular] 1 - 2 drops OS Q6H PRN #1 bottle 09/12/18 Unknown Rx Tobramycin [Tobrex] 1 drop OP Q4H #1 bottle 09/12/18 Unknown Rx Famotidine [Pepcid] 20 mg PO BID #30 tablet 11/01/18 Unknown Rx Lisinopril [Zestril TAB] 10 mg PO QDAY #30 tablet 11/01/18 Unknown Rx Ondansetron [Zofran Odt] 4 mg PO Q8HR PRN #20 tab.rapdis 11/01/18 Unknown Rx traMADol [Ultram 50 MG tab] 50 mg PO Q6HR PRN #20 tablet 11/01/18 Unknown Rx Ibuprofen [Motrin 800 MG tab] 800 mg PO Q8HR PRN #30 tablet 05/26/19 Unknown Rx Nitrofurantoin [place]/M-Cryst 100 mg PO BID 7 Days #14 capsule 05/26/19 Unknown Rx [Macrobid CAP] ED Physical Exam - General Limitations: No Limitations General appearance: alert, in no apparent distress - Head Head exam: Present: atraumatic, normocephalic - Eye Eye exam: Present: normal appearance, PERRL, EOMI Pupils: Present: normal accommodation - ENT ENT exam: Present: normal orophraynx, mucous membranes moist, TM's normal bilaterally, normal external ear exam - Neck Neck exam: Present: normal inspection, full ROM. Absent: tenderness, lymphadenopathy - Respiratory Respiratory exam: Present: normal lung sounds bilaterally. Absent: respiratory distress, wheezes, stridor, chest wall tenderness - Cardiovascular Cardiovascular Exam: Present: regular rate, normal rhythm, normal heart sounds. Absent: systolic murmur, diastolic murmur, rubs, gallop - GI/Abdominal GI/Abdominal exam: Present: soft, normal bowel sounds. Absent: distended, tenderness, guarding, rebound, rigid, bruit, hernia - Rectal Rectal exam: Present: deferred - Extremities Exam Extremities exam: Present: normal inspection, full ROM, normal capillary refill. Absent: tenderness, pedal edema, joint swelling, calf tenderness - Back Exam Back exam: Present: normal inspection, full ROM. Absent: tenderness, CVA tenderness (R), CVA tenderness (L), muscle spasm, paraspinal tenderness, vertebral tenderness, rash noted - Neurological Exam Neurological exam: Present: alert, oriented X3, CN II-XII intact, normal gait, reflexes normal. Absent: motor sensory deficit - Psychiatric Psychiatric exam: Present: normal affect, normal mood - Skin Skin exam: Present: warm, dry, intact, normal color. Absent: rash ED Course Vital Signs 05/26/19 16:31 Temperature 98.3 F Pulse Rate 81 Respiratory 18 Rate Blood Pressure 160/112 O2 Sat by Pulse 98 Oximetry ED Medical Decision Making - Lab Data Result diagrams: 05/26/19 16:37 05/26/19 16:37 Lab Results 05/26/19 05/26/19 05/26/19 Range/Units 16:37 16:37 16:37 WBC 8.5 (4.5-11.0) K/mm3 RBC 4.15 (3.65-5.03) M/mm3 Hgb 13.2 (10.1-14.3) gm/dl Hct 37.3 (30.3-42.9) % MCV 90 (79-97) fl MCH 32 (28-32) pg MCHC 35 H (30-34) % RDW 13.1 L (13.2-15.2) % Plt Count 275 (140-440) K/mm3 Lymph % (Auto) 38.1 H (13.4-35.0) % [place] % (Auto) 6.1 (0.0-7.3) % Eos % (Auto) 2.5 (0.0-4.3) % Baso % (Auto) 0.9 (0.0-1.8) % Lymph # 3.2 (1.2-5.4) K/mm3 [place] # 0.5 (0.0-0.8) K/mm3 Eos # 0.2 (0.0-0.4) K/mm3 Baso # 0.1 (0.0-0.1) K/mm3 Seg Neutrophils % 52.4 (40.0-70.0) % Seg Neutrophils # 4.4 (1.8-7.7) K/mm3 Sodium 136 L (137-145) mmol/L Potassium 4.1 (3.6-5.0) mmol/L Chloride 99.3 (98-107) mmol/L Carbon Dioxide 25 (22-30) mmol/L Anion Gap 16 mmol/L BUN 9 (7-17) mg/dL Creatinine 0.8 (0.7-1.2) mg/dL Estimated GFR > 60 ml/min BUN/Creatinine Ratio 11 % Glucose 189 H (65-100) mg/dL Calcium 9.2 (8.4-10.2) mg/dL Total Bilirubin 0.50 (0.1-1.2) mg/dL AST 16 (5-40) units/L ALT 18 (7-56) units/L Alkaline Phosphatase 76 (35-129) units/L Total Protein 8.0 (6.3-8.2) g/dL Albumin 4.1 (3.9-5) g/dL Albumin/Globulin Ratio 1.1 % Lipase 44 (13-60) units/L HCG, Qual Negative (Negative) Urine Color (Yellow) Urine Turbidity (Clear) Urine pH (5.0-7.0) Ur Specific [place] (1.003-1.030) Urine Protein (Negative) mg/dL Urine Glucose (UA) (Negative) mg/dL Urine Ketones (Negative) mg/dL Urine Blood (Negative) Urine Nitrite (Negative) Urine Bilirubin (Negative) Urine Urobilinogen (<2.0) mg/dL Ur Leukocyte Esterase (Negative) Urine WBC (Auto) (0.0-6.0) /HPF Urine RBC (Auto) (0.0-6.0) /HPF U Epithel Cells (Auto) (0-13.0) /HPF Urine Bacteria (Auto) (Negative) /HPF Urine Mucus /HPF 05/26/19 Range/Units Unknown WBC (4.5-11.0) K/mm3 RBC (3.65-5.03) M/mm3 Hgb (10.1-14.3) gm/dl Hct (30.3-42.9) % MCV (79-97) fl MCH (28-32) pg MCHC (30-34) % RDW (13.2-15.2) % Plt Count (140-440) K/mm3 Lymph % (Auto) (13.4-35.0) % [place] % (Auto) (0.0-7.3) % Eos % (Auto) (0.0-4.3) % Baso % (Auto) (0.0-1.8) % Lymph # (1.2-5.4) K/mm3 [place] # (0.0-0.8) K/mm3 Eos # (0.0-0.4) K/mm3 Baso # (0.0-0.1) K/mm3 Seg Neutrophils % (40.0-70.0) % Seg Neutrophils # (1.8-7.7) K/mm3 Sodium (137-145) mmol/L Potassium (3.6-5.0) mmol/L Chloride (98-107) mmol/L Carbon Dioxide (22-30) mmol/L Anion Gap mmol/L BUN (7-17) mg/dL Creatinine (0.7-1.2) mg/dL Estimated GFR ml/min BUN/Creatinine Ratio % Glucose (65-100) mg/dL Calcium (8.4-10.2) mg/dL Total Bilirubin (0.1-1.2) mg/dL AST (5-40) units/L ALT (7-56) units/L Alkaline Phosphatase (35-129) units/L Total Protein (6.3-8.2) g/dL Albumin (3.9-5) g/dL Albumin/Globulin Ratio % Lipase (13-60) units/L HCG, Qual (Negative) Urine Color Yellow (Yellow) Urine Turbidity Cloudy (Clear) Urine pH 7.0 (5.0-7.0) Ur Specific [place] 1.018 (1.003-1.030) Urine Protein <15 mg/dl (Negative) mg/dL Urine Glucose (UA) Neg (Negative) mg/dL Urine Ketones Neg (Negative) mg/dL Urine Blood Mod (Negative) Urine Nitrite Neg (Negative) Urine Bilirubin Neg (Negative) Urine Urobilinogen 4.0 (<2.0) mg/dL Ur Leukocyte Esterase Mod (Negative) Urine WBC (Auto) 17.0 H (0.0-6.0) /HPF Urine RBC (Auto) 4.0 (0.0-6.0) /HPF U Epithel Cells (Auto) 16.0 H (0-13.0) /HPF Urine Bacteria (Auto) 1+ (Negative) /HPF Urine Mucus 1+ /HPF - Medical Decision Making this is like UTI, abd soft nontender pt is toleating po intake eating evening meal at this time, there is no fever no chills, no vaginal discharge, plan: macrobid, ibuprofen, follow up with pcp in 2-3 yrs, pt verbalized agreement and understanding of discharge plan. Critical care attestation.: If time is entered above; I have spent that time in minutes in the direct care of this critically ill patient, excluding procedure time. ED Disposition Clinical Impression: UTI (urinary tract infection) Qualifiers: Urinary tract infection type: acute cystitis Hematuria presence: without hematuria Qualified Code(s): N30.00 - Acute cystitis without hematuria Disposition: TO HOME OR SELFCARE Is pt being admited?: No Does the pt Need Aspirin: No Condition: Stable Instructions: Abdominal Pain (ED), Urinary Tract Infection in Women (ED) Prescriptions: Nitrofurantoin [place]/M-Cryst [Macrobid CAP] 100 mg PO BID 7 Days #14 capsule Ibuprofen [Motrin 800 MG tab] 800 mg PO Q8HR PRN #30 tablet PRN Reason: pain Referrals: AGUS SPEAR MD [Staff Physician] - 3-5 Days Forms: Work/School Release Form(ED) Time of Disposition: 19:39
[2019-05-26 19:55] VITALS: BP 161/104
== END 2019-05-26 19:55 | disposition home or self-care (01) ==
LOC: ED 15:12
DX: N39.0 Urinary tract infection, site not specified (principal); J45.909 Unspecified asthma, uncomplicated; I10 Essential (primary) hypertension; E66.01 Morbid (severe) obesity due to excess calories; Z68.39 Body mass index [BMI] 39.0-39.9, adult; Z79.1 Long term (current) use of non-steroidal anti-inflammatories (NSAID); Z79.899 Other long term (current) drug therapy; Z90.49 Acquired absence of other specified parts of digestive tract; Z98.890 Other specified postprocedural states
CPT/HCPCS: 36415; 80053; 81001; 83690; 84703; 85025; 87086; 99283

== ENCOUNTER 2019-07-31 17:16 | Emergency (ER) | payer MEDICAID ==
--- NOTE | 2019-07-31 17:27 | Emergency Department Report ---
Blank Doc - Documentation Documentation: This is a 39-year-old female that presents with uncontrolled hyperglycemia. PCP sent pt to the ED. Denies any symptoms. This initial assessment/diagnostic orders/clinical plan/treatment(s) is/are subject to change based on patient's health status, clinical progression and re- assessment by fellow clinical providers in the ED. Further treatment and workup at subsequent clinical providers discretion. Patient/guardians urged not to elope from the ED as their condition may be serious if not clinically assessed and managed. Initial orders include: 1- Patient sent to MAIN ED for further evaluation and treatment 2- labs
[2019-07-31 18:03] LABS: Basophils % (Auto) 0.7 % (0.0-1.8); Eosinophils # (Auto) 0.1 K/mm3 (0.0-0.4); Eosinophils % (Auto) 1.3 % (0.0-4.3); Hematocrit 39.2 % (30.3-42.9); Hemoglobin 13.5 gm/dl (10.1-14.3); Lymphocytes # (Auto) 3.1 K/mm3 (1.2-5.4); Lymphocytes % (Auto) 47.9 % (13.4-35.0); Mean Corpuscular HGB Conc 34 % (30-34); Mean Corpuscular Volume 90 fl (79-97); Monocytes # (Auto) 0.4 K/mm3 (0.0-0.8); Monocytes % (Auto) 6.4 % (0.0-7.3); Platelet Count 223 K/mm3 (140-440); Red Blood Count 4.35 M/mm3 (3.65-5.03); Red Cell Distribution Width 12.6 % (13.2-15.2)
[2019-07-31 18:07] LABS: BUN/Creatinine Ratio 14; Blood Urea Nitrogen 13 mg/dL (7-17); Calcium 9.9 mg/dL (8.4-10.2); Hemolysis Index 9
[2019-07-31] MEDS ORDERED: NACL 0.9% 1000 ML 1,000 ML IV ONE (21:07)
--- NOTE | 2019-07-31 21:19 | Emergency Department Report ---
HPI - General Chief Complaint: Hyperglycemia Time Seen by Provider: 07/31/19 17:26 - HPI HPI: Room 4 The patient is a 39-year-old female presenting with a chief complaint of hyperglycemia. The patient has new diagnosis of diabetes mellitus and was star abdias on metformin 07/15/2019. The patient states since starting the medication she's had diffuse pruritus and believes she is allergic to it. The patient states her courtesy booth cashier advised that she not take the metformin so she has not taken it today. The patient contacted her primary physician for the above symptoms and when she went to see him she was found to be hyperglycemic with glucose 527. Patient was subsequent sent to the ED for further evaluation. When asked how she is feeling on the patient just complains of mild pruritus but otherwise no acute complaints Location: [See above] Duration: [See above] Quality: [See above] Severity: [See above] Timing: [See above] Context: [See above] Modifying factors: [See above] Associated signs and symptoms: [see above] ED Past Medical Hx - Past Medical History Previous Medical History?: Yes Hx Hypertension: Yes (Not taking medication x 30 days) Hx Diabetes: Yes Hx Asthma: Yes Additional medical history: Morbid obesity - Surgical History Past Surgical History?: Yes Hx Cholecystectomy: Yes Additional Surgical History: breast reduction. gallstone removal. foot surgery - Family History Family history: no significant - Social History Smoking Status: Never Smoker Substance Use Type: None - Medications Home Medications: Home Medications Medication Instructions Recorded Confirmed Last Taken Type hydroCHLOROthiazide [HCTZ] 25 mg PO ONCE #30 tablet 10/22/16 01/03/17 Unknown Rx ALBUTEROL Inhaler (OR & NICU) 2 puff IH QID PRN #1 inhalation 01/03/17 Unknown Rx [ProAir HFA Inhaler] ALBUTEROL Inhaler (OR & NICU) 2 puff IH QID PRN 01/03/17 01/03/17 Unknown History [Proair] Azithromycin [Zithromax Z-NALDO] 250 mg PO QDAY #6 tablet 01/03/17 Unknown Rx Benzonatate [Tessalon Perles] 100 mg PO Q8HR #14 capsule 01/03/17 Unknown Rx Phenylephrine/Dm/Acetaminop/GG 20 ml PO Q4HR PRN #180 liquid 01/03/17 Unknown Rx [Mucinex Rwhu-Por-Lvuqmdmxlt Lq] HYDROcodone/APAP 5-325 [Buchtel 1 each PO Q6HR PRN #15 tablet 04/21/17 Unknown Rx 5/325] Amlodipine Besylate [Norvasc] 5 mg PO QDAY #30 tablet 09/06/17 Unknown Rx Albuterol Sulfate [Albuterol 0.63% 0.63 mg IH TID PRN 7 Days ml 12/05/17 Unkno wn Rx NEBS] Benzonatate [Tessalon Perles] 100 mg PO Q8HR #12 capsule 12/05/17 Unknown Rx HYDROcodone/APAP 5-325 [Buchtel 1 each PO Q6HR PRN #12 tablet 12/05/17 Unknown Rx 5/325] Nitrofurantoin Monohyd/M-Cryst 100 mg PO BID #12 capsule 12/05/17 Unknown Rx [Macrobid 100 mg Capsule] Erythromycin [Erythromycin Ophth 10 applic OP QID #1 tube 05/25/18 Unknown Rx Oint] Erythromycin [Erythromycin Ophth 10 applic OP QID #1 tube 05/25/18 Unknown Rx Oint] Ketorolac Tromethamine [Acular] 1 - 2 drops OS Q6H PRN #1 bottle 09/12/18 Unknown Rx Tobramycin [Tobrex] 1 drop OP Q4H #1 bottle 09/12/18 Unknown Rx Famotidine [Pepcid] 20 mg PO BID #30 tablet 11/01/18 Unknown Rx Lisinopril [Zestril TAB] 10 mg PO QDAY #30 tablet 11/01/18 Unknown Rx Ondansetron [Zofran Odt] 4 mg PO Q8HR PRN #20 tab.rapdis 11/01/18 Unknown Rx traMADol [Ultram 50 MG tab] 50 mg PO Q6HR PRN #20 tablet 11/01/18 Unknown Rx Ibuprofen [Motrin 800 MG tab] 800 mg PO Q8HR PRN #30 tablet 05/26/19 Unknown Rx Lisinopril [Zestril TAB] 10 mg PO QDAY #30 tablet 05/26/19 Unknown Rx Nitrofurantoin Dolores/M-Cryst 100 mg PO BID 7 Days #14 capsule 05/26/19 Unknown Rx [Macrobid CAP] Fluconazole [Diflucan TAB] 150 mg PO ONCE #1 tablet 07/31/19 Unknown Rx glyBURIDE [Diabeta] 5 mg PO DAILY #60 tablet 07/31/19 Unknown Rx ED Review of Systems ROS: Stated complaint: DOC ORDERED/HBS Other details as noted in HPI Constitutional: no symptoms reported Eyes: denies: eye pain ENT: denies: throat pain Respiratory: no symptoms reported Cardiovascular: denies: orthopnea Endocrine: no symptoms reported Gastrointestinal: denies: abdominal pain Genitourinary: denies: dysuria Skin: pruritus Neurological: denies: headache Physical Exam - Physical Exam Vital Signs: Vital Signs 07/31/19 07/31/19 17:26 20:27 Temperature 98.0 F 98.3 F Pulse Rate 79 73 Respiratory 15 14 Rate Blood Pressure 122/81 118/86 [Left] O2 Sat by Pulse 97 99 Oximetry Physical Exam: GENERAL: The patient is well-developed well-nourished female lying on stretcher not appearing to be in acute distress. [] HEENT: Normocephalic. Atraumatic. Extraocular motions are intact. Patient has moist mucous membranes. NECK: Supple. Trachea midline CHEST/LUNGS: Clear to auscultation. There is no respiratory distress noted. HEART/CARDIOVASCULAR: Regular. There is no tachycardia. There is no gallop rub or murmur. ABDOMEN: Abdomen is soft, nontender. Patient has normal bowel sounds. There is no abdominal distention. SKIN: There is no rash. There is no edema. There is no diaphoresis. NEURO: The patient is awake, alert, and oriented. The patient is cooperative. The patient has normal speech MUSCULOSKELETAL: There is no evidence of acute injury. ED Course Vital Signs 07/31/19 07/31/19 17:26 20:27 Temperature 98.0 F 98.3 F Pulse Rate 79 73 Respiratory 15 14 Rate Blood Pressure 122/81 118/86 [Left] O2 Sat by Pulse 97 99 Oximetry - Reevaluation(s) Reevaluation #1: 07/31/19 22:55 Accu-Chek 294 ED Medical Decision Making - Lab Data Result diagrams: 07/31/19 17:35 07/31/19 17:35 Laboratory Tests 07/31/19 07/31/19 07/31/19 17:32 17:35 17:35 WBC 6.5 RBC 4.35 Hgb 13.5 Hct 39.2 MCV 90 MCH 31 MCHC 34 RDW 12.6 L Plt Count 223 Lymph % (Auto) 47.9 H Dolores % (Auto) 6.4 Eos % (Auto) 1.3 Baso % (Auto) 0.7 Lymph # 3.1 Dolores # 0.4 Eos # 0.1 Baso # 0.0 Seg Neutrophils % 43.7 Seg Neutrophils # 2.8 VBG pH Sodium 129 L Potassium 4.2 Chloride 92.5 L Carbon Dioxide 25 Anion Gap 16 BUN 13 Creatinine 0.9 Estimated GFR > 60 BUN/Creatinine Ratio 14 Glucose 455 H POC Glucose 423 H Calcium 9.9 Total Bilirubin Direct Bilirubin Indirect Bilirubin AST ALT Alkaline Phosphatase Total Protein Albumin Albumin/Globulin Ratio HCG, Qual Urine Color Urine Turbidity Urine pH Ur Specific [place] Urine Protein Urine Glucose (UA) Urine Ketones Urine Blood Urine Nitrite Urine Bilirubin Urine Urobilinogen Ur Leukocyte Esterase Urine WBC (Auto) Urine RBC (Auto) U Epithel Cells (Auto) Urine Bacteria (Auto) Urine Mucus Urine Yeast (Budding) 07/31/19 07/31/19 07/31/19 17:35 17:35 20:25 WBC RBC Hgb Hct MCV MCH MCHC RDW Plt Count Lymph % (Auto) Dolores % (Auto) Eos % (Auto) Baso % (Auto) Lymph # Dolores # Eos # Baso # Seg Neutrophils % Seg Neutrophils # VBG pH 7.351 Sodium Potassium Chloride Carbon Dioxide Anion Gap BUN Creatinine Estimated GFR BUN/Creatinine Ratio Glucose POC Glucose 384 H Calcium Total Bilirubin Direct Bilirubin Indirect Bilirubin AST ALT Alkaline Phosphatase Total Protein Albumin Albumin/Globulin Ratio HCG, Qual Negative Urine Color Urine Turbidity Urine pH Ur Specific [place] Urine Protein Urine Glucose (UA) Urine Ketones Urine Blood Urine Nitrite Urine Bilirubin Urine Urobilinogen Ur Leukocyte Esterase Urine WBC (Auto) Urine RBC (Auto) U Epithel Cells (Auto) Urine Bacteria (Auto) Urine Mucus Urine Yeast (Budding) 07/31/19 07/31/19 07/31/19 21:35 21:40 22:21 WBC RBC Hgb Hct MCV MCH MCHC RDW Plt Count Lymph % (Auto) Dolores % (Auto) Eos % (Auto) Baso % (Auto) Lymph # Dolores # Eos # Baso # Seg Neutrophils % Seg Neutrophils # VBG pH Sodium Potassium Chloride Carbon Dioxide Anion Gap BUN Creatinine Estimated GFR BUN/Creatinine Ratio Glucose POC Glucose 431 H 319 H Calcium Total Bilirubin Direct Bilirubin Indirect Bilirubin AST ALT Alkaline Phosphatase Total Protein Albumin Albumin/Globulin Ratio HCG, Qual Urine Color Yellow Urine Turbidity Slightly-cloudy Urine pH 5.0 Ur Specific [place] 1.036 H Urine Protein <15 mg/dl Urine Glucose (UA) >=500 Urine Ketones Tr Urine Blood Neg Urine Nitrite Neg Urine Bilirubin Neg Urine Urobilinogen < 2.0 Ur Leukocyte Esterase Mod Urine WBC (Auto) 8.0 H Urine RBC (Auto) 4.0 U Epithel Cells (Auto) 12.0 Urine Bacteria (Auto) 1+ Urine Mucus Few Urine Yeast (Budding) Few 07/31/19 07/31/19 23:00 Unknown WBC RBC Hgb Hct MCV MCH MCHC RDW Plt Count Lymph % (Auto) Dolores % (Auto) Eos % (Auto) Baso % (Auto) Lymph # Dolores # Eos # Baso # Seg Neutrophils % Seg Neutrophils # VBG pH Sodium Potassium Chloride Carbon Dioxide Anion Gap BUN Creatinine Estimated GFR BUN/Creatinine Ratio Glucose POC Glucose 294 H Calcium Total Bilirubin 0.70 Direct Bilirubin < 0.2 Indirect Bilirubin 0.5 AST 17 ALT 15 Alkaline Phosphatase 83 Total Protein 8.1 Albumin 4.3 Albumin/Globulin Ratio 1.1 HCG, Qual Urine Color Urine Turbidity Urine pH Ur Specific [place] Urine Protein Urine Glucose (UA) Urine Ketones Urine Blood Urine Nitrite Urine Bilirubin Urine Urobilinogen Ur Leukocyte Esterase Urine WBC (Auto) Urine RBC (Auto) U Epithel Cells (Auto) Urine Bacteria (Auto) Urine Mucus Urine Yeast (Budding) - Differential Diagnosis DKA, hyperglycemia, Critical care attestation.: If time is entered above; I have spent that time in minutes in the direct care of this critically ill patient, excluding procedure time. ED Disposition Clinical Impression: Hyperglycemia Disposition: DC-01 TO HOME OR SELFCARE Is pt being admited?: No Does the pt Need Aspirin: No Condition: Stable Instructions: Diabetic Hyperglycemia (ED) Additional Instructions: Return to the emergency department should you develop worsening symptoms, inability to tolerate food or liquids, high fever or any other concerns Prescriptions: glyBURIDE [Diabeta] 5 mg PO DAILY #60 tablet Fluconazole [Diflucan TAB] 150 mg PO ONCE #1 tablet Referrals: PRIMARY CARE, [Primary Care Provider] - [facility] Time of Disposition: 22:55
[2019-07-31] MEDS ORDERED: HumuLIN R IV ONE ×2 (21:29→22:16)
[2019-07-31 21:48] LABS: Alanine Aminotransferase 15 units/L (7-56); Albumin 4.3 g/dL (3.9-5)
[2019-07-31 21:59] LABS: Bacteria,Urine 1+ /HPF (Negative); Bilirubin,Urine NEG (Negative); Blood,Urine NEG (Negative); Color,Urine Yellow (Yellow); Mucus,Urine FEW /HPF; Protein,Urine <15 mg/dL mg/dL (Negative); Urobilinogen,Urine < 2.0 mg/dL (<2.0)
[2019-07-31 22:00] LABS: Bilirubin,Direct < 0.2 mg/dL (0-0.2)
[2019-08-01 00:22] VITALS: BP 101/69
== END 2019-07-31 23:20 | disposition home or self-care (01) ==
LOC: ED 17:16
DX: E11.65 Type 2 diabetes mellitus with hyperglycemia (principal); I10 Essential (primary) hypertension; J45.909 Unspecified asthma, uncomplicated; E66.01 Morbid (severe) obesity due to excess calories; Z90.49 Acquired absence of other specified parts of digestive tract
CPT/HCPCS: 36415; 80048; 80076; 81001; 82805; 82962; 84703; 85025; 96361; 96374; 96376; 99283; J7030; J1815

== ENCOUNTER 2019-11-04 19:11 | Emergency (ER) | payer MEDICAID ==
[2019-11-04 20:05] VITALS: BP 153/91
--- NOTE | 2019-11-04 20:12 | Event Note ---
ED Screening Note Date of service: 11/04/19 Time: 20:06 ED Screening Note: 39 y o presents with dizziness, abd pain This initial assessment/diagnostic orders/clinical plan/treatment(s) is/are subject to change based on patients health status, clinical progression and re- assessment by fellow clinical providers in the ED. Further treatment and workup at subsequent clinical providers discretion. Patient/guardian urged not to elope from the ED as their condition may be serious if not clinically assessed and managed. Initial orders include: labs, ua
[2019-11-04 21:29] LABS: Basophils # (Auto) 0.1 K/mm3 (0.0-0.1); Basophils % (Auto) 0.9 % (0.0-1.8); Eosinophils # (Auto) 0.1 K/mm3 (0.0-0.4); Eosinophils % (Auto) 1.5 % (0.0-4.3); Hematocrit 38.5 % (30.3-42.9); Hemoglobin 13.1 gm/dl (10.1-14.3); Lymphocytes # (Auto) 3.4 K/mm3 (1.2-5.4); Lymphocytes % (Auto) 38.8 % (13.4-35.0); Mean Corpuscular HGB Conc 34 % (30-34); Mean Corpuscular Volume 92 fl (79-97); Monocytes # (Auto) 0.6 K/mm3 (0.0-0.8); Monocytes % (Auto) 6.3 % (0.0-7.3); Platelet Count 302 K/mm3 (140-440); Red Blood Count 4.19 M/mm3 (3.65-5.03); Red Cell Distribution Width 12.8 % (13.2-15.2)
[2019-11-04 22:20] LABS: Alanine Aminotransferase 16 units/L (7-56); BUN/Creatinine Ratio 16; Blood Urea Nitrogen 13 mg/dL (7-17); Calcium 9.1 mg/dL (8.4-10.2); Hemolysis Index 39
--- NOTE | 2019-11-04 22:55 | Emergency Department Report ---
ED General Adult HPI - General Chief complaint: Abdominal Pain Stated complaint: FLU SX Time Seen by Provider: 11/04/19 21:45 Source: patient Mode of arrival: Ambulatory Limitations: No Limitations - History of Present Illness Initial comments: 39-year-old -[place] female patient with history of hypertension and diabetes complaints of intermittent lightheadedness, intermittent headaches, and intermittent abdominal cramping 5 days. Patient describes the lightheadedness as if she wants to pass out. She denies any head trauma, chest pain, vision changes, numbness/tingling/weakness in her limbs, fever, or neck pain. She denies any current abdominal pain or headache. She states when the headaches do occur they are very mild and resolved without medication. Patient also reports 1 episode of shortness of breath today that lasted about 1 minute while she was getting. She admits to history of asthma. She denies any further shortness of breath or wheezing or chest tightness. She denies any recent long travel, leg pain/swelling, oral contraceptives, or history of DVT/PE. She admits to history of asthma, but denies any wheezing. She denies any hematochezia/melena or vomiting. - Related Data Home Medications Medication Instructions Recorded Confirmed Last Taken ALBUTEROL Inhaler (OR & NICU) 2 puff IH QID PRN 01/03/17 01/03/17 Unknown [Proair] Previous Rx's Medication Instructions Recorded Last Taken Type hydroCHLOROthiazide [HCTZ] 25 mg PO ONCE #30 tablet 10/22/16 Unknown Rx ALBUTEROL Inhaler (OR & NICU) 2 puff IH QID PRN #1 inhalation 01/03/17 Unknown Rx [ProAir HFA Inhaler] Azithromycin [Zithromax Z-NALDO] 250 mg PO QDAY #6 tablet 01/03/17 Unknown Rx Benzonatate [Tessalon Perles] 100 mg PO Q8HR #14 capsule 01/03/17 Unknown Rx Phenylephrine/Dm/Acetaminop/GG 20 ml PO Q4HR PRN #180 liquid 01/03/17 Unknown Rx [Mucinex Jqfe-Iwb-Oatefuuuhq Lq] HYDROcodone/APAP 5-325 [[place] 1 each PO Q6HR PRN #15 tablet 04/21/17 Unknown Rx 5/325] Amlodipine Besylate [Norvasc] 5 mg PO QDAY #30 tablet 09/06/17 Unknown Rx Albuterol Sulfate [Albuterol 0.63% 0.63 mg IH TID PRN 7 Days ml 12/05/17 Unknown Rx NEBS] Benzonatate [Tessalon Perles] 100 mg PO Q8HR #12 capsule 12/05/17 Unknown Rx HYDROcodone/APAP 5-325 [[facility] 1 each PO Q6HR PRN #12 tablet 12/05/17 Unknown Rx 5/325] Nitrofurantoin Monohyd/M-Cryst 100 mg PO BID #12 capsule 12/05/17 Unknown Rx [Macrobid 100 mg Capsule] Erythromycin [Erythromycin Ophth 10 applic OP QID #1 tube 05/25/18 Unknown Rx Oint] Erythromycin [Erythromycin Ophth 10 applic OP QID #1 tube 05/25/18 Unknown Rx Oint] Ketorolac Tromethamine [Acular] 1 - 2 drops OS Q6H PRN #1 bottle 09/12/18 Unknown Rx Tobramycin [Tobrex] 1 drop OP Q4H #1 bottle 09/12/18 Unknown Rx Famotidine [Pepcid] 20 mg PO BID #30 tablet 11/01/18 Unknown Rx Lisinopril [Zestril TAB] 10 mg PO QDAY #30 tablet 11/01/18 Unknown Rx Ondansetron [Zofran Odt] 4 mg PO Q8HR PRN #20 tab.rapdis 11/01/18 Unknown Rx traMADoL [Ultram 50 MG tab] 50 mg PO Q6HR PRN #20 tablet 11/01/18 Unknown Rx Ibuprofen [Motrin 800 MG tab] 800 mg PO Q8HR PRN #30 tablet 05/26/19 Unknown Rx Lisinopril [Zestril TAB] 10 mg PO QDAY #30 tablet 05/26/19 Unknown Rx Nitrofurantoin [place]/M-Cryst 100 mg PO BID 7 Days #14 capsule 05/26/19 Unknown Rx [Macrobid CAP] Fluconazole [Diflucan TAB] 150 mg PO ONCE #1 tablet 07/31/19 Unknown Rx glyBURIDE [Diabeta] 5 mg PO DAILY #60 tablet 07/31/19 Unknown Rx Allergies Allergy/AdvReac Type Severity Reaction Status Date / Time No Known Allergies Allergy Verified 09/05/17 13:57 ED Review of Systems ROS: Stated complaint: FLU SX Other details as noted in HPI ED Past Medical Hx - Past Medical History Previous Medical History?: Yes Hx Hypertension: Yes (Not taking medication x 30 days) Hx Diabetes: Yes Hx Asthma: Yes Additional medical history: Morbid obesity - Surgical History Past Surgical History?: Yes Hx Cholecystectomy: Yes Additional Surgical History: breast reduction. gallstone removal. foot surgery - Social History Smoking Status: Never Smoker Substance Use Type: None - Medications Home Medications: Home Medications Medication Instructions Recorded Confirmed Last Taken Type hydroCHLOROthiazide [HCTZ] 25 mg PO ONCE #30 tablet 10/22/16 01/03/17 Unknown Rx ALBUTEROL Inhaler (OR & NICU) 2 puff IH QID PRN #1 inhalation 01/03/17 Unknown Rx [ProAir HFA Inhaler] ALBUTEROL Inhaler (OR & NICU) 2 puff IH QID PRN 01/03/17 01/03/17 Unknown History [Proair] Azithromycin [Zithromax Z-NALDO] 250 mg PO QDAY #6 tablet 01/03/17 Unknown Rx Benzonatate [Tessalon Perles] 100 mg PO Q8HR #14 capsule 01/03/17 Unknown Rx Phenylephrine/Dm/Acetaminop/GG 20 ml PO Q4HR PRN #180 liquid 01/03/17 Unknown Rx [Mucinex Jutv-Xbp-Trvcyakobi Lq] HYDROcodone/APAP 5-325 [[place] 1 each PO Q6HR PRN #15 tablet 04/21/17 Unknown Rx 5/325] Amlodipine Besylate [Norvasc] 5 mg PO QDAY #30 tablet 09/06/17 Unknown Rx Albuterol Sulfate [Albuterol 0.63% 0.63 mg IH TID PRN 7 Days ml 12/05/17 Unknown Rx NEBS] Benzonatate [Tessalon Perles] 100 mg PO Q8HR #12 capsule 12/05/17 Unknown Rx HYDROcodone/APAP 5-325 [[place] 1 each PO Q6HR PRN #12 tablet 12/05/17 Unknown Rx 5/325] Nitrofurantoin Monohyd/M-Cryst 100 mg PO BID #12 capsule 12/05/17 Unknown Rx [Macrobid 100 mg Capsule] Erythromycin [Erythromycin Ophth 10 applic OP QID #1 tube 05/25/18 Unknown Rx Oint] Erythromycin [Erythromycin Ophth 10 applic OP QID #1 tube 05/25/18 Unknown Rx Oint] Ketorolac Tromethamine [Acular] 1 - 2 drops OS Q6H PRN #1 bottle 09/12/18 Unknown Rx Tobramycin [Tobrex] 1 drop OP Q4H #1 bottle 09/12/18 Unknown Rx Famotidine [Pepcid] 20 mg PO BID #30 tablet 11/01/18 Unknown Rx Lisinopril [Zestril TAB] 10 mg PO QDAY #30 tablet 11/01/18 Unknown Rx Ondansetron [Zofran Odt] 4 mg PO Q8HR PRN #20 tab.rapdis 11/01/18 Unknown Rx traMADoL [Ultram 50 MG tab] 50 mg PO Q6HR PRN #20 tablet 11/01/18 Unknown Rx Ibuprofen [Motrin 800 MG tab] 800 mg PO Q8HR PRN #30 tablet 05/26/19 Unknown Rx Lisinopril [Zestril TAB] 10 mg PO QDAY #30 tablet 05/26/19 Unknown Rx Nitrofurantoin [place]/M-Cryst 100 mg PO BID 7 Days #14 capsule 05/26/19 Unknown Rx [Macrobid CAP] Fluconazole [Diflucan TAB] 150 mg PO ONCE #1 tablet 07/31/19 Unknown Rx glyBURIDE [Diabeta] 5 mg PO DAILY #60 tablet 07/31/19 Unknown Rx ED Physical Exam - General Limitations: No Limitations General appearance: alert, in no apparent distress - Head Head exam: Present: atraumatic, normocephalic - Eye Eye exam: Present: normal appearance, PERRL, EOMI. Absent: scleral icterus - ENT ENT exam: Present: mucous membranes moist - Neck Neck exam: Present: normal inspection, full ROM. Absent: tenderness - Respiratory Respiratory exam: Present: normal lung sounds bilaterally. Absent: respiratory distress, wheezes, rales, rhonchi, chest wall tenderness - Cardiovascular Cardiovascular Exam: Present: regular rate, normal rhythm. Absent: systolic murmur, diastolic murmur, rubs, gallop - GI/Abdominal GI/Abdominal exam: Present: soft, normal bowel sounds. Absent: distended, tenderness, guarding, rebound, rigid - Rectal Rectal exam: Present: deferred - Extremities Exam Extremities exam: Present: normal inspection, other (no swelling noted in lower extremities bilaterally). Absent: calf tenderness - Back Exam Back exam: Present: normal inspection - Neurological Exam Neurological exam: Present: alert, oriented X3, CN II-XII intact, normal gait. Absent: motor sensory deficit - Expanded Neurological Exam Expanded Cerebellar function: Finger to Nose: Normal, Heel to [place]: Normal, Romberg: Normal Sensory exam: Upper Extremity Light Touch: Normal, Lower Extremity Light Touch: Normal Motor strength exam: RUE: 5, LUE: 5, RLE: 5, LLE: 5 - Psychiatric Psychiatric exam: Present: normal affect, normal mood - Skin Skin exam: Present: warm, dry, intact, normal color. Absent: rash ED Course Vital Signs 11/04/19 11/05/19 20:02 02:00 Temperature 98.5 F Pulse Rate 60 Respiratory 18 18 Rate Blood Pressure 153/91 O2 Sat by Pulse 100 Oximetry ED Medical Decision Making - Lab Data Result diagrams: 11/04/19 20:45 11/04/19 20:45 Lab Results 11/04/19 11/04/19 11/04/19 Range/Units 20:45 20:45 20:45 WBC 8.8 (4.5-11.0) K/mm3 RBC 4.19 (3.65-5.03) M/mm3 Hgb 13.1 (10.1-14.3) gm/dl Hct 38.5 (30.3-42.9) % MCV 92 (79-97) fl MCH 31 (28-32) pg MCHC 34 (30-34) % RDW 12.8 L (13.2-15.2) % Plt Count 302 (140-440) K/mm3 Lymph % (Auto) 38.8 H (13.4-35.0) % [place] % (Auto) 6.3 (0.0-7.3) % Eos % (Auto) 1.5 (0.0-4.3) % Baso % (Auto) 0.9 (0.0-1.8) % Lymph # 3.4 (1.2-5.4) K/mm3 [place] # 0.6 (0.0-0.8) K/mm3 Eos # 0.1 (0.0-0.4) K/mm3 Baso # 0.1 (0.0-0.1) K/mm3 Seg Neutrophils % 52.5 (40.0-70.0) % Seg Neutrophils # 4.6 (1.8-7.7) K/mm3 Sodium (137-145) mmol/L Potassium (3.6-5.0) mmol/L Chloride (98-107) mmol/L Carbon Dioxide (22-30) mmol/L Anion Gap mmol/L BUN (7-17) mg/dL Creatinine (0.7-1.2) mg/dL Estimated GFR ml/min BUN/Creatinine Ratio % Glucose (65-100) mg/dL Calcium (8.4-10.2) mg/dL Total Bilirubin (0.1-1.2) mg/dL AST (5-40) units/L ALT (7-56) units/L Alkaline Phosphatase (35-129) units/L Troponin T (0.00-0.029) ng/mL NT-Pro-B Natriuret Pep (0-450) pg/mL Total Protein (6.3-8.2) g/dL Albumin (3.9-5) g/dL Albumin/Globulin Ratio % Lipase 56 (13-60) units/L HCG, Qual Negative (Negative) Urine Bilirubin (Negative) Urine RBC (Auto) (0.0-6.0) /HPF U Epithel Cells (Auto) (0-13.0) /HPF 11/04/19 11/05/19 11/05/19 Range/Units 20:45 00:38 00:38 WBC (4.5-11.0) K/mm3 RBC (3.65-5.03) M/mm3 Hgb (10.1-14.3) gm/dl Hct (30.3-42.9) % MCV (79-97) fl MCH (28-32) pg MCHC (30-34) % RDW (13.2-15.2) % Plt Count (140-440) K/mm3 Lymph % (Auto) (13.4-35.0) % [place] % (Auto) (0.0-7.3) % Eos % (Auto) (0.0-4.3) % Baso % (Auto) (0.0-1.8) % Lymph # (1.2-5.4) K/mm3 [place] # (0.0-0.8) K/mm3 Eos # (0.0-0.4) K/mm3 Baso # (0.0-0.1) K/mm3 Seg Neutrophils % (40.0-70.0) % Seg Neutrophils # (1.8-7.7) K/mm3 Sodium 140 (137-145) mmol/L Potassium 3.8 (3.6-5.0) mmol/L Chloride 105.5 (98-107) mmol/L Carbon Dioxide 23 (22-30) mmol/L Anion Gap 15 mmol/L BUN 13 (7-17) mg/dL Creatinine 0.8 (0.7-1.2) mg/dL Estimated GFR > 60 ml/min BUN/Creatinine Ratio 16 % Glucose 121 H (65-100) mg/dL Calcium 9.1 (8.4-10.2) mg/dL Total Bilirubin 0.30 (0.1-1.2) mg/dL AST 17 (5-40) units/L ALT 16 (7-56) units/L Alkaline Phosphatase 64 (35-129) units/L Troponin T < 0.010 (0.00-0.029) ng/mL NT-Pro-B Natriuret Pep 57.46 (0-450) pg/mL Total Protein 7.5 (6.3-8.2) g/dL Albumin 4.0 (3.9-5) g/dL Albumin/Globulin Ratio 1.1 % Lipase (13-60) units/L HCG, Qual (Negative) Urine Bilirubin (Negative) Urine RBC (Auto) (0.0-6.0) /HPF U Epithel Cells (Auto) (0-13.0) /HPF 11/05/19 Range/Units 01:00 WBC (4.5-11.0) K/mm3 RBC (3.65-5.03) M/mm3 Hgb (10.1-14.3) gm/dl Hct (30.3-42.9) % MCV (79-97) fl MCH (28-32) pg MCHC (30-34) % RDW (13.2-15.2) % Plt Count (140-440) K/mm3 Lymph % (Auto) (13.4-35.0) % [place] % (Auto) (0.0-7.3) % Eos % (Auto) (0.0-4.3) % Baso % (Auto) (0.0-1.8) % Lymph # (1.2-5.4) K/mm3 [place] # (0.0-0.8) K/mm3 Eos # (0.0-0.4) K/mm3 Baso # (0.0-0.1) K/mm3 Seg Neutrophils % (40.0-70.0) % Seg Neutrophils # (1.8-7.7) K/mm3 Sodium (137-145) mmol/L Potassium (3.6-5.0) mmol/L Chloride (98-107) mmol/L Carbon Dioxide (22-30) mmol/L Anion Gap mmol/L BUN (7-17) mg/dL Creatinine (0.7-1.2) mg/dL Estimated GFR ml/min BUN/Creatinine Ratio % Glucose (65-100) mg/dL Calcium (8.4-10.2) mg/dL Total Bilirubin (0.1-1.2) mg/dL AST (5-40) units/L ALT (7-56) units/L Alkaline Phosphatase (35-129) units/L Troponin T (0.00-0.029) ng/mL NT-Pro-B Natriuret Pep (0-450) pg/mL Total Protein (6.3-8.2) g/dL Albumin (3.9-5) g/dL Albumin/Globulin Ratio % Lipase (13-60) units/L HCG, Qual (Negative) Urine Bilirubin Neg (Negative) Urine RBC (Auto) 2.0 (0.0-6.0) /HPF U Epithel Cells (Auto) 2.0 (0-13.0) /HPF - Radiology Data Radiology results: report reviewed CT HEAD WITHOUT CONTRAST INDICATION : dizziness, headache. TECHNIQUE: Axial, coronal and sagittal CT imaging was performed from the skull apex through the skull base without contrast. All CT scans at this location are performed using CT dose reduction for ALARA by means of automated exposure control. COMPARISON: None available. FINDINGS: PARENCHYMA: No mass, midline shift, hemorrhage, extraaxial collection or acute territorial infarction. VENTRICLES: Symmetric and normal in size. SOFT TISSUES: Soft tissues including the orbits appear normal. BONES: No acute osseous abnormality. SINUSES: No significant abnormality. ADDITIONAL FINDINGS: None. IMPRESSION: No acute intracranial abnormality. CHEST 2 VIEWS INDICATION / CLINICAL INFORMATION: shortness of breath. COMPARISON: None available. FINDINGS: SUPPORT DEVICES: None. HEART / MEDIASTINUM: No significant abnormality. LUNGS / PLEURA: No significant pulmonary or pleural abnormality. No pneumothorax. ADDITIONAL FINDINGS: No significant additional findings. IMPRESSION: 1. No acute abnormality of the chest. - Medical Decision Making 39-year-old female with history of diabetes and hypertension comes in today with complaints of intermittent lightheadedness, headaches, and abdominal cramping. She denies any headache or abdominal cramping today. Labs are without acute findings. Vital signs are WNL. Orthostats are WNL. CT head and chest x-ray are normal. EKG is also normal. Patient is stable for discharge home with follow-up with neurology. Discussed very strict return precautions in detail with patient who states understanding. Critical care attestation.: If time is entered above; I have spent that time in minutes in the direct care of this critically ill patient, excluding procedure time. ED Disposition Clinical Impression: Lightheadedness Disposition: DC-01 TO HOME OR SELFCARE Is pt being admited?: No Condition: Stable Instructions: Lightheadedness (ED) Referrals: FRANKIE DUNBAR MD [Referring] - 2-3 Days
--- NOTE | 2019-11-04 23:21 | XRay Report ---
CHEST 2 VIEWS INDICATION / CLINICAL INFORMATION: shortness of breath. COMPARISON: None available. FINDINGS: SUPPORT DEVICES: None. HEART / MEDIASTINUM: No significant abnormality. LUNGS / PLEURA: No significant pulmonary or pleural abnormality. No pneumothorax. ADDITIONAL FINDINGS: No significant additional findings. IMPRESSION: 1. No acute abnormality of the chest. Signer Name: Napoleon Frias MD Signed: 11/04/2019 11:16 PM Workstation Name: [id number]
--- NOTE | 2019-11-04 23:51 | Cat Scan Report ---
CT HEAD WITHOUT CONTRAST INDICATION : dizziness, headache. TECHNIQUE: Axial, coronal and sagittal CT imaging was performed from the skull apex through the skul l base without contrast. All CT scans at this location are performed using CT dose reduction for ALA RA by means of automated exposure control. COMPARISON: None available. FINDINGS: PARENCHYMA: No mass, midline shift, hemorrhage, extraaxial collection or acute territorial infarctio n. VENTRICLES: Symmetric and normal in size. SOFT TISSUES: Soft tissues including the orbits appear normal. BONES: No acute osseous abnormality. SINUSES: No significant abnormality. ADDITIONAL FINDINGS: None. IMPRESSION: No acute intracranial abnormality. Signer Name: Napoleon Frias MD Signed: 11/04/2019 11:46 PM Workstation Name: [id number]
[2019-11-05 01:33] LABS: Bacteria,Urine 1+ /HPF (Negative); Bilirubin,Urine NEG (Negative); Blood,Urine NEG (Negative); Color,Urine Straw (Yellow); Protein,Urine <15 mg/dL mg/dL (Negative); Urobilinogen,Urine < 2.0 mg/dL (<2.0); WBC,Urine < 1.0 /HPF (0.0-6.0)
== END 2019-11-05 02:00 | disposition home or self-care (01) ==
LOC: ED 19:11
DX: R42 Dizziness and giddiness (principal); R51 Headache; R10.9 Unspecified abdominal pain; J45.909 Unspecified asthma, uncomplicated; I10 Essential (primary) hypertension; E11.9 Type 2 diabetes mellitus without complications; E66.01 Morbid (severe) obesity due to excess calories; Z79.899 Other long term (current) drug therapy; Z90.49 Acquired absence of other specified parts of digestive tract; Z98.890 Other specified postprocedural states
CPT/HCPCS: 36415; 70450; 71046; 80053; 81001; 83690; 83880; 84484; 84703; 85025; 93005; 93010

== ENCOUNTER 2019-12-06 11:03 | Emergency (ER) | payer MEDICAID ==
[2019-12-06 11:14] VITALS: BP 145/92
--- NOTE | 2019-12-06 11:14 | Event Note ---
ED Screening Note Date of service: 12/06/19 Time: 11:12 ED Screening Note: 39 y/o female comes in for intermittent terrell pains times 2 days with nausea no vomiting. LMP 11/16/19. This initial assessment/diagnostic orders/clinical plan/treatment(s) is/are subject to change based on patients health status, clinical progression and re- assessment by fellow clinical providers in the ED. Further treatment and workup at subsequent clinical providers discretion. Patient/guardian urged not to elope from the ED as their condition may be serious if not clinically assessed and managed. Initial orders include:
[2019-12-06 11:55] LABS: Bilirubin,Urine NEG (Negative); Blood,Urine NEG (Negative); Color,Urine Yellow (Yellow); Mucus,Urine FEW /HPF; Protein,Urine <15 mg/dL mg/dL (Negative); Urobilinogen,Urine < 2.0 mg/dL (<2.0)
[2019-12-06 12:30] LABS: Alanine Aminotransferase 16 units/L (7-56); Albumin 4.4 g/dL (3.9-5); BUN/Creatinine Ratio 11; Blood Urea Nitrogen 9 mg/dL (7-17); Calcium 9.7 mg/dL (8.4-10.2); Hemolysis Index 9
[2019-12-06 12:40] LABS: Basophils % (Auto) 0.6 % (0.0-1.8); Eosinophils # (Auto) 0.2 K/mm3 (0.0-0.4); Eosinophils % (Auto) 2.5 % (0.0-4.3); Hematocrit 42.1 % (30.3-42.9); Hemoglobin 14.3 gm/dl (10.1-14.3); Lymphocytes # (Auto) 2.9 K/mm3 (1.2-5.4); Lymphocytes % (Auto) 38.2 % (13.4-35.0); Mean Corpuscular HGB Conc 34 % (30-34); Mean Corpuscular Volume 91 fl (79-97); Monocytes # (Auto) 0.5 K/mm3 (0.0-0.8); Monocytes % (Auto) 5.9 % (0.0-7.3); Platelet Count 290 K/mm3 (140-440); Red Blood Count 4.64 M/mm3 (3.65-5.03); Red Cell Distribution Width 13.1 % (13.2-15.2)
[2019-12-06] MEDS ORDERED: ONDANSETRON 4 MG ODT TAB PO ONE (14:23)
--- NOTE | 2019-12-06 16:01 | Emergency Department Report ---
ED Abdominal Pain HPI - General Chief Complaint: Abdominal Pain Stated Complaint: NAUSEA/STOMACH PAIN Time Seen by Provider: 12/06/19 11:12 Source: patient Mode of arrival: Ambulatory Limitations: No Limitations - History of Present Illness Initial Comments: 39 yo female c/o pain across top of her abdomen and nausea. State she unsure if she's or not. Denies fever,vomiting or diarrhea. Reports urinary frequency. Diabetic states she only take her insulin if blood sugar is over 200 mg/dL She has PCP and has regular follow up - Related Data Home Medications Medication Instructions Recorded Confirmed Last Taken Albuterol INH(or & Nicu Only) 2 puff IH QID PRN 01/03/17 01/03/17 Unknown [Proair] Previous Rx's Medication Instructions Recorded Last Taken Type hydroCHLOROthiazide [HCTZ] 25 mg PO ONCE #30 tablet 10/22/16 Unknown Rx Albuterol INH(or & Nicu Only) 2 puff IH QID PRN #1 inhalation 01/03/17 Unknown Rx [ProAir HFA Inhaler] Azithromycin [Zithromax Z-NALDO] 250 mg PO QDAY #6 tablet 01/03/17 Unknown Rx Benzonatate [Tessalon Perles] 100 mg PO Q8HR #14 capsule 01/03/17 Unknown Rx Phenylephrine/Dm/Acetaminop/GG 20 ml PO Q4HR PRN #180 liquid 01/03/17 Unknown Rx [Mucinex Ujhn-Rcn-Gbmtbhipil Lq] HYDROcodone/APAP 5-325 [[place] 1 each PO Q6HR PRN #15 tablet 04/21/17 Unknown Rx 5/325] Amlodipine Besylate [Norvasc] 5 mg PO QDAY #30 tablet 09/06/17 Unknown Rx Albuterol Sulfate [Albuterol 0.63% 0.63 mg IH TID PRN 7 Days ml 12/05/17 Unknown Rx NEBS] Benzonatate [Tessalon Perles] 100 mg PO Q8HR #12 capsule 12/05/17 Unknown Rx HYDROcodone/APAP 5-325 [[place] 1 each PO Q6HR PRN #12 tablet 12/05/17 Unknown Rx 5/325] Nitrofurantoin Monohyd/M-Cryst 100 mg PO BID #12 capsule 12/05/17 Unknown Rx [Macrobid 100 mg Capsule] Erythromycin [Erythromycin Ophth 10 applic OP QID #1 tube 05/25/18 Unknown Rx Oint] Erythromycin [Erythromycin Ophth 10 applic OP QID #1 tube 05/25/18 Unknown Rx Oint] Ketorolac Tromethamine [Acular] 1 - 2 drops OS Q6H PRN #1 bottle 09/12/18 Unknown Rx Tobramycin [Tobrex] 1 drop OP Q4H #1 bottle 09/12/18 Unknown Rx Famotidine [Pepcid] 20 mg PO BID #30 tablet 11/01/18 Unknown Rx Ondansetron [Zofran Odt] 4 mg PO Q8HR PRN #20 tab.rapdis 11/01/18 Unknown Rx lisinopriL [Zestril TAB] 10 mg PO QDAY #30 tablet 11/01/18 Unknown Rx traMADoL [Ultram 50 MG tab] 50 mg PO Q6HR PRN #20 tablet 11/01/18 Unknown Rx Ibuprofen [Motrin 800 MG tab] 800 mg PO Q8HR PRN #30 tablet 05/26/19 Unknown Rx Nitrofurantoin [place]/M-Cryst 100 mg PO BID 7 Days #14 capsule 05/26/19 Unknown Rx [Macrobid CAP] lisinopriL [Zestril TAB] 10 mg PO QDAY #30 tablet 05/26/19 Unknown Rx Fluconazole [Diflucan TAB] 150 mg PO ONCE #1 tablet 07/31/19 Unknown Rx glyBURIDE [Diabeta] 5 mg PO DAILY #60 tablet 07/31/19 Unknown Rx Ondansetron [Zofran Odt] 4 mg PO Q8HR 3 Days #12 tab.rapdis 12/06/19 Unknown Rx Allergies Allergy/AdvReac Type Severity Reaction Status Date / Time No Known Allergies Allergy Verified 12/06/19 11:14 ED Review of Systems ROS: Stated complaint: NAUSEA/STOMACH PAIN Other details as noted in HPI ED Past Medical Hx - Past Medical History Previous Medical History?: Yes Hx Hypertension: Yes (Not taking medication x 30 days) Hx Diabetes: Yes Hx Asthma: Yes Additional medical history: Morbid obesity - Surgical History Past Surgical History?: Yes Hx Cholecystectomy: Yes Additional Surgical History: breast reduction. gallstone removal. foot surgery - Social History Smoking Status: Never Smoker Substance Use Type: None - Medications Home Medications: Home Medications Medication Instructions Recorded Confirmed Last Taken Type hydroCHLOROthiazide [HCTZ] 25 mg PO ONCE #30 tablet 10/22/16 01/03/17 Unknown Rx Albuterol INH(or & Nicu Only) 2 puff IH QID PRN #1 inhalation 01/03/17 Unknown Rx [ProAir HFA Inhaler] Albuterol INH(or & Nicu Only) 2 puff IH QID PRN 01/03/17 01/03/17 Unknown Histor y [Proair] Azithromycin [Zithromax Z-NALDO] 250 mg PO QDAY #6 tablet 01/03/17 Unknown Rx Benzonatate [Tessalon Perles] 100 mg PO Q8HR #14 capsule 01/03/17 Unknown Rx Phenylephrine/Dm/Acetaminop/GG 20 ml PO Q4HR PRN #180 liquid 01/03/17 Unknown Rx [Mucinex Wlkf-Yqt-Gsacbzzbcq Lq] HYDROcodone/APAP 5-325 [[place] 1 each PO Q6HR PRN #15 tablet 04/21/17 Unknown Rx 5/325] Amlodipine Besylate [Norvasc] 5 mg PO QDAY #30 tablet 09/06/17 Unknown Rx Albuterol Sulfate [Albuterol 0.63% 0.63 mg IH TID PRN 7 Days ml 12/05/17 Unknown Rx NEBS] Benzonatate [Tessalon Perles] 100 mg PO Q8HR #12 capsule 12/05/17 Unknown Rx HYDROcodone/APAP 5-325 [[place] 1 each PO Q6HR PRN #12 tablet 12/05/17 Unknown Rx 5/325] Nitrofurantoin Monohyd/M-Cryst 100 mg PO BID #12 capsule 12/05/17 Unknown Rx [Macrobid 100 mg Capsule] Erythromycin [Erythromycin Ophth 10 applic OP QID #1 tube 05/25/18 Unknown Rx Oint] Erythromycin [Erythromycin Ophth 10 applic OP QID #1 tube 05/25/18 Unknown Rx Oint] Ketorolac Tromethamine [Acular] 1 - 2 drops OS Q6H PRN #1 bottle 09/12/18 Unknown Rx Tobramycin [Tobrex] 1 drop OP Q4H #1 bottle 09/12/18 Unknown Rx Famotidine [Pepcid] 20 mg PO BID #30 tablet 11/01/18 Unknown Rx Ondansetron [Zofran Odt] 4 mg PO Q8HR PRN #20 tab.rapdis 11/01/18 Unknown Rx lisinopriL [Zestril TAB] 10 mg PO QDAY #30 tablet 11/01/18 Unknown Rx traMADoL [Ultram 50 MG tab] 50 mg PO Q6HR PRN #20 tablet 11/01/18 Unknown Rx Ibuprofen [Motrin 800 MG tab] 800 mg PO Q8HR PRN #30 tablet 05/26/19 Unknown Rx Nitrofurantoin [place]/M-Cryst 100 mg PO BID 7 Days #14 capsule 05/26/19 Unknown Rx [Macrobid CAP] lisinopriL [Zestril TAB] 10 mg PO QDAY #30 tablet 05/26/19 Unknown Rx Fluconazole [Diflucan TAB] 150 mg PO ONCE #1 tablet 07/31/19 Unknown Rx glyBURIDE [Diabeta] 5 mg PO DAILY #60 tablet 07/31/19 Unknown Rx Ondansetron [Zofran Odt] 4 mg PO Q8HR 3 Days #12 tab.rapdis 12/06/19 Unknown Rx ED Physical Exam - General Limitations: No Limitations ED Course Vital Signs 12/06/19 11:12 Temperature 98.3 F Pulse Rate 86 Respiratory 20 Rate Blood Pressure 145/92 O2 Sat by Pulse 98 Oximetry ED Medical Decision Making - Lab Data Result diagrams: 12/06/19 11:26 12/06/19 11:26 Critical Care Time: No Critical care attestation.: If time is entered above; I have spent that time in minutes in the direct care of this critically ill patient, excluding procedure time. ED Disposition Clinical Impression: Abdominal pain Qualifiers: Abdominal location: upper abdomen, unspecified Qualified Code(s): R10.10 - Upper abdominal pain, unspecified Disposition: DC-01 TO HOME OR SELFCARE Is pt being admited?: No Does the pt Need Aspirin: No Condition: Stable Instructions: Abdominal Pain (ED) Additional Instructions: Take your diabetic medication as prescribed by your doctor. Return to the ER for increasing pain, fever, unable to eat or urinate. Prescriptions: Ondansetron [Zofran Odt] 4 mg PO Q8HR 3 Days #12 tab.rapdis Referrals: SONDRA RUBIN MD [Primary Care Provider] - 3-5 Days DRU PAINTING MD [Staff Physician] - 3-5 Days Time of Disposition: 16:01
== END 2019-12-06 16:23 | disposition home or self-care (01) ==
LOC: ED 11:03
DX: R10.10 Upper abdominal pain, unspecified (principal); I10 Essential (primary) hypertension; E66.01 Morbid (severe) obesity due to excess calories; E11.9 Type 2 diabetes mellitus without complications; J45.909 Unspecified asthma, uncomplicated; Z98.890 Other specified postprocedural states; Z68.39 Body mass index [BMI] 39.0-39.9, adult
CPT/HCPCS: 36415; 80053; 81001; 84703; 85025; Q0162

== ENCOUNTER 2019-12-12 19:23 | Emergency (ER) | payer MEDICAID ==
[2019-12-12] MEDS ORDERED: ASPIRIN 325 MG TAB ONE (20:05)
--- NOTE | 2019-12-12 23:19 | Emergency Department Report ---
- General Chief complaint: Skin/Abscess/Foreign Body Stated complaint: R ARM BOIL/POSS BUG BITE/PAIN Time Seen by Provider: 12/12/19 23:14 Source: patient Mode of arrival: Ambulatory Limitations: No Limitations - History of Present Illness Initial comments: 39-year-old -I[place] female presents to hold patient states that it itches and hayden. Patient states that she a spider but never saw the insect. Patient reports that she was seen by her primary care provider 2 days ago and was given an antibiotic injection and cleaned with time. Patient states she's been cleaned with iodine continues to get larger be painful. Patient denies any fever or chills no nausea no vomiting no drainage from wound. He has a past medical history of hypertension and diabetes. MD complaint: insect bite/sting, abscess/boil Onset/Timin -: days(s) Tetanus Up to Date: yes Location: RUE Severity: severe Severity scale (0 -10): 10 Quality: burning, other (itching) Consistency: constant Improves with: none Worsens with: none Context: none Associated symptoms: denies other symptoms - Related Data Home Medications Medication Instructions Recorded Confirmed Last Taken Albuterol INH(or & Nicu Only) 2 puff IH QID PRN 01/03/17 01/03/17 Unknown [Proair] Previous Rx's Medication Instructions Recorded Last Taken Type hydroCHLOROthiazide [HCTZ] 25 mg PO ONCE #30 tablet 10/22/16 Unknown Rx Albuterol INH(or & Nicu Only) 2 puff IH QID PRN #1 inhalation 01/03/17 Unknown Rx [ProAir HFA Inhaler] Azithromycin [Zithromax Z-NALDO] 250 mg PO QDAY #6 tablet 01/03/17 Unknown Rx Benzonatate [Tessalon Perles] 100 mg PO Q8HR #14 capsule 01/03/17 Unknown Rx Phenylephrine/Dm/Acetaminop/GG 20 ml PO Q4HR PRN #180 liquid 01/03/17 Unknown Rx [Mucinex Ffry-Poc-Nplgoydkdy Lq] HYDROcodone/APAP 5-325 [[place] 1 each PO Q6HR PRN #15 tablet 04/21/17 Unknown Rx 5/325] Amlodipine Besylate [Norvasc] 5 mg PO QDAY #30 tablet 09/06/17 Unknown Rx Albuterol Sulfate [Albuterol 0.63% 0.63 mg IH TID PRN 7 Days ml 12/05/17 Unknown Rx NEBS] Benzonatate [Tessalon Perles] 100 mg PO Q8HR #12 capsule 12/05/17 Unknown Rx HYDROcodone/APAP 5-325 [[place] 1 each PO Q6HR PRN #12 tablet 12/05/17 Unknown Rx 5/325] Nitrofurantoin Monohyd/M-Cryst 100 mg PO BID #12 capsule 12/05/17 Unknown Rx [Macrobid 100 mg Capsule] Erythromycin [Erythromycin Ophth 10 applic OP QID #1 tube 05/25/18 Unknown Rx Oint] Erythromycin [Erythromycin Ophth 10 applic OP QID #1 tube 05/25/18 Unknown Rx Oint] Ketorolac Tromethamine [Acular] 1 - 2 drops OS Q6H PRN #1 bottle 09/12/18 Unknown Rx Tobramycin [Tobrex] 1 drop OP Q4H #1 bottle 09/12/18 Unknown Rx Famotidine [Pepcid] 20 mg PO BID #30 tablet 11/01/18 Unknown Rx Ondansetron [Zofran Odt] 4 mg PO Q8HR PRN #20 tab.rapdis 11/01/18 Unknown Rx lisinopriL [Zestril TAB] 10 mg PO QDAY #30 tablet 11/01/18 Unknown Rx traMADoL [Ultram 50 MG tab] 50 mg PO Q6HR PRN #20 tablet 11/01/18 Unknown Rx Ibuprofen [Motrin 800 MG tab] 800 mg PO Q8HR PRN #30 tablet 05/26/19 Unknown Rx Nitrofurantoin [place]/M-Cryst 100 mg PO BID 7 Days #14 capsule 05/26/19 Unknown Rx [Macrobid CAP] lisinopriL [Zestril TAB] 10 mg PO QDAY #30 tablet 05/26/19 Unknown Rx Fluconazole [Diflucan TAB] 150 mg PO ONCE #1 tablet 07/31/19 Unknown Rx glyBURIDE [Diabeta] 5 mg PO DAILY #60 tablet 07/31/19 Unknown Rx Ondansetron [Zofran Odt] 4 mg PO Q8HR 3 Days #12 tab.rapdis 12/06/19 Unknown Rx Clindamycin [Clindamycin CAP] 300 mg PO Q8H #21 cap 12/12/19 Unknown Rx Allergies Allergy/AdvReac Type Severity Reaction Status Date / Time No Known Allergies Allergy Verified 12/12/19 20:08 Abscess Boil HPI - HPI Chief Complaint: Skin/Abscess/Foreign Body Stated Complaint: R ARM BOIL/POSS BUG BITE/PAIN Time Seen by Provider: 12/12/19 23:14 Home Medications: Home Medications Medication Instructions Recorded Confirmed Last Taken Albuterol INH(or & Nicu Only) 2 puff IH QID PRN 01/03/17 01/03/17 Unknown [Proair] Previous Rx's Medication Instructions Recorded Last Taken Type hydroCHLOROthiazide [HCTZ] 25 mg PO ONCE #30 tablet 10/22/16 Unknown Rx Albuterol INH(or & Nicu Only) 2 puff IH QID PRN #1 inhalation 01/03/17 Unknown Rx [ProAir HFA Inhaler] Azithromycin [Zithromax Z-NALDO] 250 mg PO QDAY #6 tablet 01/03/17 Unknown Rx Benzonatate [Tessalon Perles] 100 mg PO Q8HR #14 capsule 01/03/17 Unknown Rx Phenylephrine/Dm/Acetaminop/GG 20 ml PO Q4HR PRN #180 liquid 01/03/17 Unknown Rx [Mucinex Ffch-Ehr-Icpfyzcrkt Lq] HYDROcodone/APAP 5-325 [[place] 1 each PO Q6HR PRN #15 tablet 04/21/17 Unknown Rx 5/325] Amlodipine Besylate [Norvasc] 5 mg PO QDAY #30 tablet 09/06/17 Unknown Rx Albuterol Sulfate [Albuterol 0.63% 0.63 mg IH TID PRN 7 Days ml 12/05/17 Unknown Rx NEBS] Benzonatate [Tessalon Perles] 100 mg PO Q8HR #12 capsule 12/05/17 Unknown Rx HYDROcodone/APAP 5-325 [[place] 1 each PO Q6HR PRN #12 tablet 12/05/17 Unknown Rx 5/325] Nitrofurantoin Monohyd/M-Cryst 100 mg PO BID #12 capsule 12/05/17 Unknown Rx [Macrobid 100 mg Capsule] Erythromycin [Erythromycin Ophth 10 applic OP QID #1 tube 05/25/18 Unknown Rx Oint] Erythromycin [Erythromycin Ophth 10 applic OP QID #1 tube 05/25/18 Unknown Rx Oint] Ketorolac Tromethamine [Acular] 1 - 2 drops OS Q6H PRN #1 bottle 09/12/18 Unknown Rx Tobramycin [Tobrex] 1 drop OP Q4H #1 bottle 09/12/18 Unknown Rx Famotidine [Pepcid] 20 mg PO BID #30 tablet 11/01/18 Unknown Rx Ondansetron [Zofran Odt] 4 mg PO Q8HR PRN #20 tab.rapdis 11/01/18 Unknown Rx lisinopriL [Zestril TAB] 10 mg PO QDAY #30 tablet 11/01/18 Unknown Rx traMADoL [Ultram 50 MG tab] 50 mg PO Q6HR PRN #20 tablet 11/01/18 Unknown Rx Ibuprofen [Motrin 800 MG tab] 800 mg PO Q8HR PRN #30 tablet 05/26/19 Unknown Rx Nitrofurantoin [place]/M-Cryst 100 mg PO BID 7 Days #14 capsule 05/26/19 Unknown Rx [Macrobid CAP] lisinopriL [Zestril TAB] 10 mg PO QDAY #30 tablet 05/26/19 Unknown Rx Fluconazole [Diflucan TAB] 150 mg PO ONCE #1 tablet 07/31/19 Unknown Rx glyBURIDE [Diabeta] 5 mg PO DAILY #60 tablet 07/31/19 Unknown Rx Ondansetron [Zofran Odt] 4 mg PO Q8HR 3 Days #12 tab.rapdis 12/06/19 Unknown Rx Clindamycin [Clindamycin CAP] 300 mg PO Q8H #21 cap 12/12/19 Unknown Rx Allergies/Adverse Reactions: Allergies Allergy/AdvReac Type Severity Reaction Status Date / Time No Known Allergies Allergy Verified 12/12/19 20:08 ED Review of Systems ROS: Stated complaint: R ARM BOIL/POSS BUG BITE/PAIN Other details as noted in HPI Comment: All other systems reviewed and negative ED Past Medical Hx - Past Medical History Previous Medical History?: Yes Hx Hypertension: Yes (Not taking medication x 30 days) Hx Diabetes: Yes Hx Asthma: Yes Additional medical history: Morbid obesity - Surgical History Hx Cholecystectomy: Yes Additional Surgical History: breast reduction. gallstone removal. foot surgery - Social History Smoking Status: Never Smoker Substance Use Type: None - Medications Home Medications: Home Medications Medication Instructions Recorded Confirmed Last Taken Type hydroCHLOROthiazide [HCTZ] 25 mg PO ONCE #30 tablet 10/22/16 01/03/17 Unknown Rx Albuterol INH(or & Nicu Only) 2 puff IH QID PRN #1 inhalation 01/03/17 Unknown Rx [ProAir HFA Inhaler] Albuterol INH(or & Nicu Only) 2 puff IH QID PRN 01/03/17 01/03/17 Unknown Hist ory [Proair] Azithromycin [Zithromax Z-NALDO] 250 mg PO QDAY #6 tablet 01/03/17 Unknown Rx Benzonatate [Tessalon Perles] 100 mg PO Q8HR #14 capsule 01/03/17 Unknown Rx Phenylephrine/Dm/Acetaminop/GG 20 ml PO Q4HR PRN #180 liquid 01/03/17 Unknown Rx [Mucinex Pqhd-Lvm-Hyebdkbqjr Lq] HYDROcodone/APAP 5-325 [[place] 1 each PO Q6HR PRN #15 tablet 04/21/17 Unknown Rx 5/325] Amlodipine Besylate [Norvasc] 5 mg PO QDAY #30 tablet 09/06/17 Unknown Rx Albuterol Sulfate [Albuterol 0.63% 0.63 mg IH TID PRN 7 Days ml 12/05/17 Unknown Rx NEBS] Benzonatate [Tessalon Perles] 100 mg PO Q8HR #12 capsule 12/05/17 Unknown Rx HYDROcodone/APAP 5-325 [[place] 1 each PO Q6HR PRN #12 tablet 12/05/17 Unknown Rx 5/325] Nitrofurantoin Monohyd/M-Cryst 100 mg PO BID #12 capsule 12/05/17 Unknown Rx [Macrobid 100 mg Capsule] Erythromycin [Erythromycin Ophth 10 applic OP QID #1 tube 05/25/18 Unknown Rx Oint] Erythromycin [Erythromycin Ophth 10 applic OP QID #1 tube 05/25/18 Unknown Rx Oint] Ketorolac Tromethamine [Acular] 1 - 2 drops OS Q6H PRN #1 bottle 09/12/18 Unknown Rx Tobramycin [Tobrex] 1 drop OP Q4H #1 bottle 09/12/18 Unknown Rx Famotidine [Pepcid] 20 mg PO BID #30 tablet 11/01/18 Unknown Rx Ondansetron [Zofran Odt] 4 mg PO Q8HR PRN #20 tab.rapdis 12/07/18 Unknown Rx lisinopriL [Zestril TAB] 10 mg PO QDAY #30 tablet 11/01/18 Unknown Rx traMADoL [Ultram 50 MG tab] 50 mg PO Q6HR PRN #20 tablet 11/01/18 Unknown Rx Ibuprofen [Motrin 800 MG tab] 800 mg PO Q8HR PRN #30 tablet 05/26/19 Unknown Rx Nitrofurantoin [place]/M-Cryst 100 mg PO BID 7 Days #14 capsule 05/26/19 Unknown Rx [Macrobid CAP] lisinopriL [Zestril TAB] 10 mg PO QDAY #30 tablet 05/26/19 Unknown Rx Fluconazole [Diflucan TAB] 150 mg PO ONCE #1 tablet 07/31/19 Unknown Rx glyBURIDE [Diabeta] 5 mg PO DAILY #60 tablet 07/31/19 Unknown Rx Ondansetron [Zofran Odt] 4 mg PO Q8HR 3 Days #12 tab.rapdis 12/06/19 Unknown Rx Clindamycin [Clindamycin CAP] 300 mg PO Q8H #21 cap 12/12/19 Unknown Rx ED Physical Exam - General Limitations: No Limitations General appearance: alert, in no apparent distress - Head Head exam: Present: atraumatic, normocephalic - Eye Eye exam: Present: normal appearance - ENT ENT exam: Present: mucous membranes moist - Neck Neck exam: Present: full ROM - Neurological Exam Neurological exam: Present: alert, oriented X3 - Psychiatric Psychiatric exam: Present: normal affect, normal mood - Expanded Skin Exam Expanded Type of lesion: Present: abscess Distribution of rash: RUE (forearm) Description of rash: Present: size (2x2cm), tenderness, erythematous, swelling, indurated. Absent: fluctuant ED Course Vital Signs 12/12/19 19:51 Temperature 98.2 F Pulse Rate 75 Respiratory 18 Rate Blood Pressure 153/110 [Left] O2 Sat by Pulse 98 Oximetry ED Medical Decision Making - Medical Decision Making 39-year-old -[place] female presents to hold patient states that it itches and hayden. Patient states that she a spider but never saw the insect. Patient reports that she was seen by her primary care provider 2 days ago and was given an antibiotic injection and cleaned with time. Patient states she's been cleaned with iodine continues to get larger be painful. Patient denies any fever or chills no nausea no vomiting no drainage from wound. He has a past medical history of hypertension and diabetes. She'll be treated with clindamycin 300 mg 3 times a day for 7 days patient's encouraged to take ibuprofen or Tylenol for pain management. Patient needs to follow back up with her primary care provider for symptoms persist or gets worse. Critical care attestation.: If time is entered above; I have spent that time in minutes in the direct care of this critically ill patient, excluding procedure time. ED Disposition Clinical Impression: Abscess of right forearm Disposition: DC-01 TO HOME OR SELFCARE Is pt being admited?: No Does the pt Need Aspirin: No Condition: Stable Instructions: Abscess (ED) Additional Instructions: Completes her antibiotics as prescribed. Take [id number] ibuprofen or Tylenol for pain management. You continues warm compresses on abscess. Follow up with her primary care provider in the next 3-4 days. Prescriptions: Clindamycin [Clindamycin CAP] 300 mg PO Q8H #21 cap Referrals: ADELA ROSA MD [Primary Care Provider] - 3-5 Days
[2019-12-12 23:43] VITALS: BP 155/104
== END 2019-12-12 23:42 | disposition home or self-care (01) ==
LOC: ED 19:23
DX: L02.413 Cutaneous abscess of right upper limb (principal); I10 Essential (primary) hypertension; E11.9 Type 2 diabetes mellitus without complications; J45.909 Unspecified asthma, uncomplicated; E66.01 Morbid (severe) obesity due to excess calories; Z68.39 Body mass index [BMI] 39.0-39.9, adult; Z90.49 Acquired absence of other specified parts of digestive tract; Z79.899 Other long term (current) drug therapy; Z98.890 Other specified postprocedural states

== ENCOUNTER 2019-12-16 13:34 | Emergency (ER) | payer MEDICAID | END 2019-12-16 19:02 | disposition left against medical advice (07) | LOC: ED 13:34 | DX: R21 Rash and other nonspecific skin eruption (principal); Z53.21 Procedure and treatment not carried out due to patient leaving prior to being seen by health care provider ==

== ENCOUNTER 2020-09-07 16:19 | Emergency (ER) | payer MEDICAID ==
[2020-09-07 20:49] LABS: Blood Urea Nitrogen 7 mg/dL (7-17); Calcium 9.3 mg/dL (8.4-10.2); Hemolysis Index 1
[2020-09-07 20:53] LABS: Basophils % (Auto) 0.4 % (0.0-1.8); Eosinophils # (Auto) 0.2 K/mm3 (0.0-0.4); Eosinophils % (Auto) 2.1 % (0.0-4.3); Hematocrit 34.1 % (30.3-42.9); Hemoglobin 11.3 gm/dl (10.1-14.3); Lymphocytes # (Auto) 2.2 K/mm3 (1.2-5.4); Lymphocytes % (Auto) 30.7 % (13.4-35.0); Mean Corpuscular HGB Conc 33 % (30-34); Mean Corpuscular Volume 91 fl (79-97); Monocytes # (Auto) 0.6 K/mm3 (0.0-0.8); Monocytes % (Auto) 7.5 % (0.0-7.3); Platelet Count 210 K/mm3 (140-440); Red Blood Count 3.75 M/mm3 (3.65-5.03); Red Cell Distribution Width 13.8 % (13.2-15.2)
[2020-09-07 20:57] LABS: BUN/Creatinine Ratio 10
--- NOTE | 2020-09-07 22:00 | Emergency Department Report ---
ED General Adult HPI - General Chief complaint: Extremity Problem,Nontraumatic Stated complaint: SOB/ Time Seen by Provider: 09/07/20 20:12 Source: patient Mode of arrival: Ambulatory Limitations: No Limitations - History of Present Illness Initial comments: 40-year-old -[place] female presents emergency department complaining of having occasional cramps and muscle spasms to her right leg of an unknown etiology states he is had any lotion any swelling no numbness or tingling. No abdominal pain no chest pain no palpitation no fever, chills, sweats no trauma no long trips. She was at work she was advised to come to the ER to get self checked out because the spasms caused her to need to sit down and massage her leg to release the discomfort. Radiation: non-radiation Quality: aching, dull Consistency: constant Improves with: none Worsens with: none Associated Symptoms: denies other symptoms. denies: confusion, chest pain, cough, headaches, loss of appetite, nausea/vomiting, rash, seizure, syncope, weakness Treatments Prior to Arrival: none - Related Data Home Medications Medication Instructions Recorded Confirmed Last Taken Albuterol Mdi (or & Nicu Only) 2 puff IH QID PRN 01/03/17 01/03/17 Unknown [Proair] Previous Rx's Medication Instructions Recorded Last Taken Type hydroCHLOROthiazide [HCTZ] 25 mg PO ONCE #30 tablet 10/22/16 Unknown Rx Albuterol Mdi (or & Nicu Only) 2 puff IH QID PRN #1 inhalation 01/03/17 Unknown Rx [ProAir HFA Inhaler] Azithromycin [Zithromax Z-NALDO] 250 mg PO QDAY #6 tablet 01/03/17 Unknown Rx Benzonatate [Tessalon Perles] 100 mg PO Q8HR #14 capsule 01/03/17 Unknown Rx Phenylephrine/Dm/Acetaminop/GG 20 ml PO Q4HR PRN #180 liquid 01/03/17 Unknown Rx [Mucinex Evoj-Ayj-Lmsksqkyvq Lq] HYDROcodone/APAP 5-325 [[place] 1 each PO Q6HR PRN #15 tablet 04/21/17 Unknown Rx 5/325] Amlodipine Besylate [Norvasc] 5 mg PO QDAY #30 tablet 09/06/17 Unknown Rx Albuterol Sulfate [Albuterol 0.63% 0.63 mg IH TID PRN 7 Days ml 12/05/17 Unknown Rx NEBS] Benzonatate [Tessalon Perles] 100 mg PO Q8HR #12 capsule 12/05/17 Unknown Rx HYDROcodone/APAP 5-325 [[place] 1 each PO Q6HR PRN #12 tablet 12/05/17 Unknown Rx 5/325] Nitrofurantoin Monohyd/M-Cryst 100 mg PO BID #12 capsule 12/05/17 Unknown Rx [Macrobid 100 mg Capsule] Erythromycin [Erythromycin Ophth 10 applic OP QID #1 tube 05/25/18 Unknown Rx Oint] Erythromycin [Erythromycin Ophth 10 applic OP QID #1 tube 05/25/18 Unknown Rx Oint] Ketorolac Tromethamine [Acular] 1 - 2 drops OS Q6H PRN #1 bottle 09/12/18 Unknown Rx Tobramycin [Tobrex] 1 drop OP Q4H #1 bottle 09/12/18 Unknown Rx Famotidine [Pepcid] 20 mg PO BID #30 tablet 11/01/18 Unknown Rx Ondansetron [Zofran Odt] 4 mg PO Q8HR PRN #20 tab.rapdis 11/01/18 Unknown Rx lisinopriL [Zestril TAB] 10 mg PO QDAY #30 tablet 11/01/18 Unknown Rx traMADoL [Ultram 50 MG tab] 50 mg PO Q6HR PRN #20 tablet 11/01/18 Unknown Rx Ibuprofen [Motrin 800 MG tab] 800 mg PO Q8HR PRN #30 tablet 05/26/19 Unknown Rx Nitrofurantoin [place]/M-Cryst 100 mg PO BID 7 Days #14 capsule 05/26/19 Unknown Rx [Macrobid CAP] lisinopriL [Zestril TAB] 10 mg PO QDAY #30 tablet 05/26/19 Unknown Rx Fluconazole (Nf) [Diflucan TAB] 150 mg PO ONCE #1 tablet 07/31/19 Unknown Rx glyBURIDE [Diabeta] 5 mg PO DAILY #60 tablet 07/31/19 Unknown Rx Ondansetron [Zofran Odt] 4 mg PO Q8HR 3 Days #12 tab.rapdis 12/06/19 Unknown Rx Clindamycin [Clindamycin CAP] 300 mg PO Q8H #21 cap 12/12/19 Unknown Rx Allergies Allergy/AdvReac Type Severity Reaction Status Date / Time No Known Allergies Allergy Verified 12/12/19 20:08 ED Review of Systems ROS: Stated complaint: SOB/ Other details as noted in HPI Comment: All other systems reviewed and negative ED Past Medical Hx - Past Medical History Previous Medical History?: Yes Hx Hypertension: Yes Hx Diabetes: Yes Hx Asthma: Yes Additional medical history: Morbid obesity - Surgical History Past Surgical History?: Yes Hx Cholecystectomy: Yes Additional Surgical History: Breast reduction. Foot surgery - Social History Smoking Status: Never Smoker Substance Use Type: None - Medications Home Medications: Home Medications Medication Instructions Recorded Confirmed Last Taken Type hydroCHLOROthiazide [HCTZ] 25 mg PO ONCE #30 tablet 10/22/16 01/03/17 Unknown Rx Albuterol Mdi (or & Nicu Only) 2 puff IH QID PRN #1 inhalation 01/03/17 Unknown Rx [ProAir HFA Inhaler] Albuterol Mdi (or & Nicu Only) 2 puff IH QID PRN 01/03/17 01/03/17 Unknown History [Proair] Azithromycin [Zithromax Z-NALDO] 250 mg PO QDAY #6 tablet 01/03/17 Unknown Rx Benzonatate [Tessalon Perles] 100 mg PO Q8HR #14 capsule 01/03/17 Unknown Rx Phenylephrine/Dm/Acetaminop/GG 20 ml PO Q4HR PRN #180 liquid 01/03/17 Unknown Rx [Mucinex Rrhg-Ikj-Mqozvqtand Lq] HYDROcodone/APAP 5-325 [[place] 1 each PO Q6HR PRN #15 tablet 04/21/17 Unknown Rx 5/325] Amlodipine Besylate [Norvasc] 5 mg PO QDAY #30 tablet 09/06/17 Unknown Rx Albuterol Sulfate [Albuterol 0.63% 0.63 mg IH TID PRN 7 Days ml 12/05/17 Unknown Rx NEBS] Benzonatate [Tessalon Perles] 100 mg PO Q8HR #12 capsule 12/05/17 Unknown Rx HYDROcodone/APAP 5-325 [[place] 1 each PO Q6HR PRN #12 tablet 12/05/17 Unknown Rx 5/325] Nitrofurantoin Monohyd/M-Cryst 100 mg PO BID #12 capsule 12/05/17 Unknown Rx [Macrobid 100 mg Capsule] Erythromycin [Erythromycin Ophth 10 applic OP QID #1 tube 05/25/18 Unknown Rx Oint] Erythromycin [Erythromycin Ophth 10 applic OP QID #1 tube 05/25/18 Unknown Rx Oint] Ketorolac Tromethamine [Acular] 1 - 2 drops OS Q6H PRN #1 bottle 09/12/18 Unknown Rx Tobramycin [Tobrex] 1 drop OP Q4H #1 bottle 09/12/18 Unknown Rx Famotidine [Pepcid] 20 mg PO BID #30 tablet 11/01/18 Unknown Rx Ondansetron [Zofran Odt] 4 mg PO Q8HR PRN #20 tab.rapdis 11/01/18 Unknown Rx lisinopriL [Zestril TAB] 10 mg PO QDAY #30 tablet 11/01/18 Unknown Rx traMADoL [Ultram 50 MG tab] 50 mg PO Q6HR PRN #20 tablet 11/01/18 Unknown Rx Ibuprofen [Motrin 800 MG tab] 800 mg PO Q8HR PRN #30 tablet 05/26/19 Unknown Rx Nitrofurantoin [place]/M-Cryst 100 mg PO BID 7 Days #14 capsule 05/26/19 Unknown Rx [Macrobid CAP] lisinopriL [Zestril TAB] 10 mg PO QDAY #30 tablet 05/26/19 Unknown Rx Fluconazole (Nf) [Diflucan TAB] 150 mg PO ONCE #1 tablet 07/31/19 Unknown Rx glyBURIDE [Diabeta] 5 mg PO DAILY #60 tablet 07/31/19 Unknown Rx Ondansetron [Zofran Odt] 4 mg PO Q8HR 3 Days #12 tab.rapdis 12/06/19 Unknown Rx Clindamycin [Clindamycin CAP] 300 mg PO Q8H #21 cap 12/12/19 Unknown Rx ED Physical Exam - General Limitations: No Limitations General appearance: alert, in no apparent distress - Head Head exam: Present: atraumatic, normocephalic - Eye Eye exam: Present: normal appearance, PERRL, EOMI Pupils: Present: normal accommodation - ENT ENT exam: Present: normal exam, normal orophraynx, mucous membranes moist, TM's normal bilaterally - Neck Neck exam: Present: normal inspection, full ROM - Respiratory Respiratory exam: Present: normal lung sounds bilaterally. Absent: respiratory distress, rales, rhonchi, accessory muscle use, decreased breath sounds - Cardiovascular Cardiovascular Exam: Present: regular rate, normal rhythm. Absent: systolic murmur, diastolic murmur, rubs, gallop - GI/Abdominal GI/Abdominal exam: Present: soft, normal bowel sounds. Absent: tenderness, guarding, hyperactive bowel sounds, hypoactive bowel sounds, organomegaly - Extremities Exam Extremities exam: Present: normal inspection, tenderness, normal capillary refill - Expanded Lower Extremity Exam Right Hip exam: Present: normal inspection, full ROM Upper Leg exam: Present: normal inspection, full ROM Knee exam: Present: normal inspection, full ROM Lower Leg exam: Present: tenderness. Absent: swelling, abrasion, laceration, ecchymosis, deformity, crepidus, dislocation, erythema, palpable cord, Debi's sign Ankle exam: Present: normal inspection Foot/Toe exam: Present: normal inspection Neuro vascular tendon exam: Present: no vascular compromise - Back Exam Back exam: Present: normal inspection, tenderness, muscle spasm. Absent: CVA tenderness (R), CVA tenderness (L), paraspinal tenderness, vertebral tenderness - Neurological Exam Neurological exam: Present: alert, oriented X3, CN II-XII intact, normal gait - Psychiatric Psychiatric exam: Present: normal affect, normal mood - Skin Skin exam: Present: warm, dry, intact, normal color. Absent: rash ED Course Vital Signs 09/07/20 17:07 Temperature 98.2 F Pulse Rate 111 H Respiratory 20 Rate Blood Pressure 115/70 O2 Sat by Pulse 96 Oximetry ED Medical Decision Making - Lab Data Result diagrams: 09/07/20 20:18 09/07/20 20:18 Critical care attestation.: If time is entered above; I have spent that time in minutes in the direct care of this critically ill patient, excluding procedure time. ED Disposition Clinical Impression: Right leg pain Disposition: DC-01 TO HOME OR SELFCARE Is pt being admited?: No Does the pt Need Aspirin: No Condition: Stable Additional Instructions: Please be sure to follow-up with your [employer] make sure to keep yourself hydrated well to help stop your lower extremity cramping Referrals: PRIMARY CARE, [Primary Care Provider] - 3-5 Days
[2020-09-07 23:17] VITALS: BP 122/67
== END 2020-09-07 23:20 | disposition home or self-care (01) ==
LOC: ED 16:19
DX: M79.604 Pain in right leg (principal); I10 Essential (primary) hypertension; E11.9 Type 2 diabetes mellitus without complications; J45.909 Unspecified asthma, uncomplicated; E66.01 Morbid (severe) obesity due to excess calories; Z68.27 Body mass index [BMI] 27.0-27.9, adult; Z79.899 Other long term (current) drug therapy; Z98.890 Other specified postprocedural states; Z90.49 Acquired absence of other specified parts of digestive tract
CPT/HCPCS: 36415; 80048; 85025

== ENCOUNTER 2021-02-15 17:54 | Emergency (ER) | payer MEDICAID ==
--- NOTE | 2021-02-15 19:30 | XRay Report ---
RIGHT WRIST 4 VIEWS 191 INDICATION: pain after injury COMPARISON: None available. FINDINGS: No fractures or dislocation are seen. Small bone island is seen in the distal radius. No si gnificant arthritic changes are noted. Signer Name: Abel Elliott MD Signed: 02/15/2021 7:25 PM Workstation Name: [id number]
[2021-02-15] MEDS ORDERED: HYDROcodone/ACETAMINOPHEN 5-325 MG TAB PO ONE (19:47)
--- NOTE | 2021-02-15 19:47 | Emergency Department Report ---
Upper Extremity - HPI Chief Complaint: Extremity Injury, Upper Stated Complaint: RT ARM PAIN Time Seen by Provider: 02/15/21 19:45 Upper Extremity: Right Wrist (R wrist pain and swelling x ) Occurred When: 3 Days Mechanism: Unsure Severity: moderate Symptoms: Yes Pain with Movement, Yes Swelling, No Deformity, No Limited Range of Movement, No Numbness, No Weakness, No Bruising/Ecchymosis, No Laceration or Abrasion Other History: PT is a 41 y/o aaf who presents for right lateral wrist pain x 3 days, pt denies fall , injury, or trauma, pt decribes pain as 5/10 soreness, aching that is reproducible to movement and palpation, pt denies numbness ,tingling, or paralysis. there is no abrasion , bleeding or laceration no obvious deformity. ED Review of Systems ROS: Stated complaint: RT ARM PAIN Other details as noted in HPI Constitutional: denies: chills, fever Eyes: denies: eye pain, eye discharge, vision change ENT: denies: ear pain, throat pain Respiratory: denies: cough, shortness of breath, wheezing Cardiovascular: denies: chest pain, palpitations Endocrine: no symptoms reported Gastrointestinal: denies: abdominal pain, nausea, diarrhea Genitourinary: as per HPI Musculoskeletal: arthralgia, other (right wrist pain ) Skin: denies: rash, lesions Neurological: denies: headache, weakness, paresthesias Psychiatric: denies: anxiety, depression Hematological/Lymphatic: denies: easy bleeding, easy bruising ED Past Medical Hx - Past Medical History Hx Hypertension: Yes Hx Diabetes: Yes Hx Deep Vein Thrombosis: No Hx Renal Disease: No Hx Sickle Cell Disease: No Hx Seizures: No Hx Asthma: Yes (LAST ATTACK AT AGE 7) Additional medical history: Morbid obesity - Surgical History Hx Cholecystectomy: Yes Additional Surgical History: Breast reduction. Foot surgery - Social History Smoking Status: Never Smoker Substance Use Type: None - Medications Home Medications: Home Medications Medication Instructions Recorded Confirmed Last Taken Type hydroCHLOROthiazide [HCTZ] 25 mg PO ONCE #30 tablet 10/22/16 01/03/17 Unknown Rx Albuterol Mdi (or & Nicu Only) 2 puff IH QID PRN #1 inhalation 01/03/17 Unknown Rx [ProAir HFA Inhaler] Albuterol Mdi (or & Nicu Only) 2 puff IH QID PRN 01/03/17 01/03/17 Unknown History [Proair] Azithromycin [Zithromax Z-NALDO] 250 mg PO QDAY #6 tablet 01/03/17 Unknown Rx Benzonatate [Tessalon Perles] 100 mg PO Q8HR #14 capsule 01/03/17 Unknown Rx Phenylephrine/Dm/Acetaminop/GG 20 ml PO Q4HR PRN #180 liquid 01/03/17 Unknown Rx [Mucinex Qcnt-Byf-Hahuozqusj Lq] HYDROcodone/APAP 5-325 [Leona 1 each PO Q6HR PRN #15 tablet 04/21/17 Unknown Rx 5/325] Amlodipine Besylate [Norvasc] 5 mg PO QDAY #30 tablet 09/06/17 Unknown Rx Albuterol Sulfate [Albuterol 0.63% 0.63 mg IH TID PRN 7 Days ml 12/05/17 Unknown Rx NEBS] Benzonatate [Tessalon Perles] 100 mg PO Q8HR #12 capsule 12/05/17 Unknown Rx HYDROcodone/APAP 5-325 [Leona 1 each PO Q6HR PRN #12 tablet 12/05/17 Unknown Rx 5/325] Nitrofurantoin Monohyd/M-Cryst 100 mg PO BID #12 capsule 12/05/17 Unknown Rx [Macrobid 100 mg Capsule] Erythromycin [Erythromycin Ophth 10 applic OP QID #1 tube 05/25/18 Unknown Rx Oint] Erythromycin [Erythromycin Ophth 10 applic OP QID #1 tube 05/25/18 Unknown Rx Oint] Ketorolac Tromethamine [Acular] 1 - 2 drops OS Q6H PRN #1 bottle 09/12/18 Unknown Rx Tobramycin [Tobrex] 1 drop OP Q4H #1 bottle 09/12/18 Unknown Rx Famotidine [Pepcid] 20 mg PO BID #30 tablet 11/01/18 Unknown Rx Ondansetron [Zofran Odt] 4 mg PO Q8HR PRN #20 tab.rapdis 11/01/18 Unknown Rx lisinopriL [Zestril TAB] 10 mg PO QDAY #30 tablet 11/01/18 Unknown Rx traMADoL [Ultram 50 MG tab] 50 mg PO Q6HR PRN #20 tablet 12/07/18 Unknown Rx Ibuprofen [Motrin 800 MG tab] 800 mg PO Q8HR PRN #30 tablet 05/26/19 Unknown Rx Nitrofurantoin [place]/M-Cryst 100 mg PO BID 7 Days #14 capsule 05/26/19 Unknown Rx [Macrobid CAP] lisinopriL [Zestril TAB] 10 mg PO QDAY #30 tablet 05/26/19 Unknown Rx Fluconazole (Nf) [Diflucan TAB] 150 mg PO ONCE #1 tablet 07/31/19 Unknown Rx glyBURIDE [Diabeta] 5 mg PO DAILY #60 tablet 07/31/19 Unknown Rx Ondansetron [Zofran Odt] 4 mg PO Q8HR 3 Days #12 tab.rapdis 12/06/19 Unknown Rx Clindamycin [Clindamycin CAP] 300 mg PO Q8H #21 cap 12/12/19 Unknown Rx Docusate Sodium [Colace] 100 mg PO BID PRN #30 capsule 10/28/20 Unknown Rx Ferrous Sulfate [Feosol 325 MG tab] 325 mg PO BID #90 tablet 10/28/20 Unknown Rx Ibuprofen [Motrin 800 MG tab] 800 mg PO TID PRN #30 tablet 10/28/20 Unknown Rx Lidocain2.5%/Prilocai2.5% [Emla] 5 gm TP ONCE #1 tube 10/28/20 Unknown Rx oxyCODONE /ACETAMINOPHEN [Percocet 1 - 2 tab PO Q4HR PRN #14 tablet 10/28/20 Unknown Rx 5/325 mg] Blood Pressure Test Kit-Wrist 1 each ONCE #1 kit 11/01/20 Unknown Rx [Procare Wrist Bp Monitor] Dexamethasone [Decadron] 6 mg PO DAILY #7 tablet 11/01/20 Unknown Rx labetaloL [Labetalol 200mg TAB] 200 mg PO BID #60 tablet 11/01/20 Unknown Rx Menthol/Camphor [[place] 50 gm TP QID PRN #1 tube 02/15/21 Unknown Rx Ointment] Naproxen 500 mg PO BID PRN #30 tablet 02/15/21 Unknown Rx Upper Extremity Exam - Exam General: Vital signs noted. No distress. Alert and acting appropriately. Head and Torso: No HEENT Abnormality, No Neck Tenderness, No Chest/Lungs Abnormality, No Abdominal Tenderness, No Back Tenderness Shoulder Exam: Yes Normal Range of Motion in Shoulder, No Shoulder Tenderness, No Clavicle Tenderness, No Shoulder Deformity, No AC Joint Tenderness Arm Exam: No Arm/Humerus Tenderness, No Arm Deformity Elbow: No Elbow Tenderness, No Normal Range of Motion in Elbow, No Elbow Deformity Forearm: No Forearm Tenderness, No Forearm Deformity, No Pain with Pronation, No Pain with Supination Wrist: Yes Wrist Tenderness, Yes Normal ROM in Wrist, Yes Pain with Axial Thumb Compression (no crepitus, no deformity, no swelling wrapper stemmer hand >3 sec. flexoion & extnsion intact to direct confrontation), No Wrist Deformity, No Snuffbox Tenderness Hand: Yes Digit Tenderness (left proximal thumb), Yes Normal ROM in Digit(s), No Hand Tenderness, No Hand Deformity, No Digit(s) Deformity, No Tendon Dysfunction CMS Exam: Yes Normal Distal Pulses, Yes Normal Capillary Refill, Yes Normal Distal Sensation, No Broken Skin ED Course Vital Signs 02/15/21 18:42 Temperature 98.3 F Pulse Rate 85 Respiratory 20 Rate Blood Pressure 166/121 O2 Sat by Pulse 98 Oximetry ED Medical Decision Making - Radiology Data Radiology results: report reviewed, image reviewed Ordering Physician: JUDD MACIEL Date of Service: 02/15/21 Procedure(s): XR wrist 3+V RT Accession Number(s): [id number] cc: JUDD MACIEL Fluoro Time In Minutes: RIGHT WRIST 4 VIEWS 1917 INDICATION: pain after injury FINDINGS: No fractures or dislocation are seen. Small bone island is seen in the distal radius. No significant arthritic changes are noted. COMPARISON: None available. 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 , Soft Boarder are equal at 5/5. Joint is stable plan Velcro thumb spica , NSAIDs as needed pain, follow-up with orthopedics in 2 to 3 days. Patient verbalized agreement and understanding with discharge plan. Patient DC'd home in stable condition at this time. pt with htn episode this visit, bp improved with medicaitons given in ed, pt is on amlodipine has not had dose in two days, advised to take medications as prescribed unpon arrival to home, repeat vital signs noted, splint check completed. Vital signs: 158/88, hr: 79, resp: 16 Critical care attestation.: If time is entered above; I have spent that time in minutes in the direct care of this critically ill patient, excluding procedure time. ED Disposition Clinical Impression: Sprain of right wrist Qualifiers: Encounter type: initial encounter Qualified Code(s): S63.501A - Unspecified sprain of right wrist, initial encounter Disposition: DC-01 TO HOME OR SELFCARE Is pt being admited?: No Does the pt Need Aspirin: No Condition: Stable Instructions: Elastic Bandage and RICE Therapy, Wrist Sprain Rehab-[facility] Additional Instructions: use splint as directed, follow up with orthopedic doctor as scheduled, take all medications as prescribed. Prescriptions: Naproxen 500 mg PO BID PRN #30 tablet PRN Reason: pain Menthol/Camphor [[place] Ointment] 50 gm TP QID PRN #1 tube PRN Reason: pain Referrals: PRIMARY CARE, [Primary Care Provider] - 3-5 Days Forms: Work/School Release Form(ED) Time of Disposition: 20:16
[2021-02-15] MEDS ORDERED: amLODIPine 5 MG TAB PO ONE (20:42)
[2021-02-15 20:45] VITALS: BP 214/131
== END 2021-02-15 20:45 | disposition home or self-care (01) ==
LOC: ED 17:54
DX: S63.501A Unspecified sprain of right wrist, initial encounter (principal); I10 Essential (primary) hypertension; E11.9 Type 2 diabetes mellitus without complications; J45.909 Unspecified asthma, uncomplicated; Z79.899 Other long term (current) drug therapy; X58.XXXA Exposure to other specified factors, initial encounter; Y93.89 Activity, other specified; Y92.89 Other specified places as the place of occurrence of the external cause; Y99.8 Other external cause status
CPT/HCPCS: 99283

== ENCOUNTER 2022-06-06 12:03 | Outpatient (CLI) | payer MEDICAID | END 2022-06-06 12:04 | disposition home or self-care (01) | LOC: LABHHL 12:03 | PROVIDERS: ATTEND Surgery | DX: N60.01 Solitary cyst of right breast (principal) | CPT/HCPCS: 88304; 88305 ==